=== PATIENT | male | born 1975 | race African-American/Black ===

== ENCOUNTER 2024-08-09 14:12 | Emergency (ER) | payer OTHER, SELFPAY ==
--- NOTE | ~2024-08-09 | XR_ITS ---
EXAMINATION: XR WRIST, RIGHT CLINICAL INFORMATION: s/p reduction of carpal dislocation COMPARISON: Hand radiograph August 09, 2024 TECHNIQUE: PA, lateral, and oblique views of the right wrist. FINDINGS: Scapholunate dissociation with a small avulsion fragment. Persistent volar dislocation of the lunate and dorsal dislocation of the triquetrum. Soft tissue structures are within normal limits. XR/XR wrist RT min 3V IMPRESSION: Persistent volar lunate dislocation. Electronically signed by: Alvaro Medina DO 08/09/2024 09:51 PM EST RP
--- NOTE | ~2024-08-09 | XR_ITS ---
EXAMINATION: XR HAND/WRIST, RIGHT CLINICAL INFORMATION: fall, pain COMPARISON: None available. TECHNIQUE: PA, lateral, and oblique views of the right hand and wrist. FINDINGS: There is a 7 mm widening at the triquetrum lunate joint. There is a volar position of the lunate and a dorsal position of the triquetrum. There is a dorsal position of the capitate with respect to the lunate. Metacarpals and phalanges are intact. Distal radius and ulna are intact. XR/XR hand wrist RT IMPRESSION: Carpal dislocation with a volar lunate dislocation Electronically signed by: Danny Diaz MD 08/09/2024 03:39 PM EST
--- NOTE | ~2024-08-09 | XR_ITS ---
EXAMINATION: XR SHOULDER, RIGHT CLINICAL INFORMATION: fall, pain COMPARISON: None available. TECHNIQUE: AP external rotation, Grashey, scapular Y, and axillary views of the right shoulder. FINDINGS: Subchondral cyst formation in the greater tuberosity. No acute cortical disruption or malalignment. No lytic or blastic lesions. XR/XR shoulder RT min 2V IMPRESSION: Degenerative changes without acute fracture or dislocation. Electronically signed by: Danny Diaz MD 08/09/2024 03:29 PM [facility]
--- NOTE | ~2024-08-09 | XR_ITS ---
EXAMINATION: XR ELBOW, RIGHT CLINICAL INFORMATION: fall, pain COMPARISON: None available. TECHNIQUE: AP, lateral, and oblique views of the right elbow. FINDINGS: The bones and soft tissues are normal. No fracture or joint effusion. Alignment is anatomic. Joint spaces are maintained. XR/XR elbow RT 2V IMPRESSION: No acute fracture or subluxation of the right elbow. Electronically signed by: Enrique Galo MD 08/09/2024 03:37 PM [facility]
--- NOTE | 2024-08-09 14:18 | ED_ITS ---
HPI - General Adult General Chief complaint: Fall Stated complaint: r arm inj at work Time Seen by Provider: 08/09/24 15:00 Source: patient Mode of arrival: ambulatory Limitations: no limitations History of Present Illness ED Provider: DR. Peralta HPI narrative: 49-year-old male came in for evaluation of right arm pain after fell off a 6 ft ladder while he was working on the roof. patient is right-handed dominant. The bottom of the ladder was unstable made the patient to fall Of the ladder to the right side patient tried to use the fall using his right hand, no head in jury, no LOC, mainly complaining of right wrist pain /right hand pain and right shoulder pain. No headache, no neck pain, no weakness, no numbness, no CP, no abdominal pain, no lower extremities pain. Patient is known to have high blood pressure follow- up with his security consultant took his blood pressure medication in the morning his blood pressure in the ED is 203/108 without symptoms. Related Data Allergies Allergy/AdvReac Type Severity Reaction Status Date / Time No Known Allergies Allergy Verified 08/09/24 14:22 Review of Systems Review of Systems: All other systems are reviewed and are negative Constitutional: Reports as per HPI and Reports no additional constitutional complaints Eyes: Reports as per HPI and Reports no additional eye complaints Reports system reviewed and no additional complaints, except as documented Cardiovascular: Reports as per HPI and Reports no additional cardiovascular complaints Respiratory: Reports as per HPI and Reports no additional respiratory complaints Gastrointestinal: Reports as per HPI and Reports no additional gastrointestinal complaints Genitourinary: Reports no additional female genitourinary complaints Musculoskeletal: Reports no additional musculoskeletal complaints Skin/Breast: Reports system reviewed and no additional complaints, except as docu Psychiatric: Reports no additional psychiatric complaints Endocrine: Reports no additional endocrine complaints Hematologic/Lymphatic: Reports no additional hematologic/lymphatic complaints Allergic/Immunologic: Reports no additional allergic/immunologic complaints Reports system reviewed and no additional complaints, except as documented and Reports Abnormal speech present PMFSH Social History Social History Advance Directives: No Advance Directives Information Provided: Yes Do you have a plan to hurt others: No Plan Physical Exam ED Vital Signs: Vital Signs - 24 hr 08/09/24 14:19 08/09/24 17:23 08/09/24 19:57 Temperature 98 F Pulse Rate 68 74 72 Respiratory Rate 18 16 16 Blood Pressure 203/108 H 186/108 H 202/122 H Pulse Oximetry 98 98 98 Oxygen Delivery Method Room Air Room Air 08/09/24 20:18 Temperature Pulse Rate 84 Respiratory Rate Blood Pressure 221/103 H Pulse Oximetry Oxygen Delivery Method BMI result Body Mass Index 26.6 Vital signs have been reviewed and appear to be correct. Blood pressure elevated. Heart rate normal. Respiratory rate normal. Temperature normal. Oxygen saturation normal. Appearance: Alert. Oriented X3. No acute distress. Head: Normal external exam. Normocephalic. Atraumatic. No Stein signs noted. No raccoon eyes noted Eyes: PERRLA. EOMI. Conjunctiva and sclera normal. Eyelids normal. ENT: TM's Normal. Pharynx normal. Uvula midline. Moist mucous membranes. No trismus noted. No drooling noted. No muffled voice noted. Neck: Normal inspection. Neck supple. FROM. No adenopathy. Thyroid Normal. No meningeal signs. No neck mass noted. CVS: Normal heart rate and rhythm. Heart sound normal. No murmurs noted. Pulses normal throughout. Respiratory: No respiratory distress. Painless inspiration. Breath sounds normal. No wheezes/rales/rhonchi noted. Chest nontender. No accessory muscle usage noted or decreased air movement noted. Abdomen: Soft and nontender. Bowel sounds normal in all 4 quadrants. No distention noted. No organomegaly noted. No visible injury noted. Back: No CVA tenderness. Full range of motion noted. Skin: Skin warm and dry. Normal skin color. Normal skin turgor. No rashes/lesions/lacerations noted. Extremities: No lower extremity edema. Extremities exhibit normal range of motion. Extremities nontender. Neuro: Oriented X 3. Cranial nerve exam: II-XII are grossly intact No motor deficit. No sensory deficit. Reflexes normal. Course Course Course Narrative: This is a rapid medical exam performed by Elroy Guadarrama NP: Additional HPI, ROS, PE not included below will be deferred to primary provider. Patient is a 49-year-old right hand dominant male presenting with complaint of right arm pain from shoulder all the way to hand after falling off a 6' ladder around 10 am. Denies head strike or LOC. Hx of HTN, took medication this am. 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 Denies neck or back pain. Plan: xrays Reevaluation(s) Reevaluation #1: carpal bone dislocation with lunate dislocation, after attempt of reduction in the emergency department by hanging left hand in a fingertrap with applying weight to the elbow and manipulation repeat x-ray of the wrist is showing no good reduction, the case was discussed with Dr. Mckenzie /Zoey the plan is pain control, apply splint to the left wrist, patient to keep NPO after midnight tonight, and ortho office will call the patient tomorrow morning to have him come back for open reduction in the OR all the above instruction was discussed with the patient and patient verbalized full understanding of the instructions. Patient with known hypertension follow with a security consultant for his high blood pressure was recently increased his blood pressure dosage patient in the emergency department have high blood pressure with a mix of left wrist pain, patient has no chest pain, no shortness of breath, no blurry vision, no headache. Patient was instructed to follow-up with his security consultant to continue managing his blood pressure. Patient was instructed to take his morning medication before midnight and stay NPO for possible surgery and open reduction tomorrow. Time: 20:47 Medications Administered Discontinued Medications Generic Name Dose Route Start Last Admin Trade Name Kam PRN Reason Stop Dose Admin Amlodipine Besylate 5 mg 08/09/24 15:11 08/09/24 15:21 Amlodipine Besylate 5 Mg Tablet PO 08/09/24 15:12 5 mg ONCE ONE Administration Protocol Ibuprofen 800 mg 08/09/24 15:11 08/09/24 15:21 Ibuprofen 800 Mg Tablet PO 08/09/24 15:12 800 mg ONCE ONE Administration Ibuprofen 600 mg 08/09/24 20:03 08/09/24 20:13 Ibuprofen 600 Mg Tablet PO 08/09/24 20:04 600 mg ONCE ONE Administration Oxycodone HCl 5 mg 08/09/24 15:11 08/09/24 15:21 Oxycodone Hcl Immed Release 5 Mg Tablet PO 08/09/24 15:12 5 mg ONCE ONE Administration Oxycodone HCl 5 mg 08/09/24 20:03 08/09/24 20:14 Oxycodone Hcl Immed Release 5 Mg Tablet PO 08/09/24 20:04 5 mg ONCE ONE Administration Procedures Orthopedic Joint Reduction Joint #1: Time Out Performed: Yes Side: left Joint Reduction Location: wrist Analgesia: none Shoulder Technique Used (if applicable): traction/counter-traction Technique used: traction/counter-traction and direct manipulation Medical Decision Making Differential Diagnosis Differential Diagnoses: The differential diagnosis associated with the presentation includes ( Left shoulder fracture, left arm fracture, left elbow fracture, left elbow dislocation, left forearm fracture, carpal dislocation, metacarpal fracture, finger injuries.) Admission/Observation Consideration of admission/observation: Escalation of care including admission/observation considered Independent Interpretation I performed an independent interpretation of an: Plain X-Ray (There is a 7 mm widening at the triquetrum lunate joint. There is a volar position of the lunate and a dorsal position of the triquetrum. There is a dorsal position of the capitate with respect to the lunate. Metacarpals and phalanges are intact. Distal radius and ulna are intact. ) Radiology Impression Discussion of test interpretation with radiology: I have reviewed the radiologist's reading. Discharge Plan Discharge Clinical Impression: Closed dislocation of carpometacarpal joint of left wrist Patient Disposition: Home, Self-Care Instructions: Wrist Injury (ED) Additional Instructions: apply ice to the painful area. Do not eat or drink anything after midnight tonight and await phone call from Dr. Mckenzie office for possible surgery tomorrow to reduce your left wrist. Take ibuprofen 200 mg tablet every 6 hours if needed for pain. Follow-up with your security consultant regard to your high reading of blood pressure. Referrals: Marybeth Mckenzie MD [Physician] - Stand Alone Forms: Work/School Release Print Language: Fijian
[2024-08-09 14:19] VITALS: BP 203/108; PULSE 68; RESP 18; TEMP 36.6; O2SAT 98; BMI 26.6
[2024-08-09] MEDS: oxyCODONE HCl Immed Release 5 MG TABLET PO ×2 (15:21→20:14)
[2024-08-09] MEDS: amLODIPine Besylate 5 MG TABLET PO (15:21)
[2024-08-09] MEDS: Ibuprofen 800 MG TABLET PO (15:21)
[2024-08-09 17:23] VITALS: BP 186/108; PULSE 74; RESP 16; O2SAT 98
[2024-08-09 19:57] VITALS: BP 202/122; PULSE 72; RESP 16; O2SAT 98
[2024-08-09] MEDS: Ibuprofen 600 MG TABLET PO (20:13)
[2024-08-09 20:18] VITALS: BP 221/103; PULSE 84
--- NOTE | 2024-08-09 20:19 | PC.NURSE ---
pt medicated per nov for 7/10 right wrist pain. aware of BP.
[2024-08-09 21:09] VITALS: BP 204/113; PULSE 75; RESP 16; TEMP 37.4; O2SAT 98
== END 2024-08-09 21:10 | disposition home or self-care (01) ==
PROVIDERS: Emergency Provider Emergency Medicine
DX: S62.121A Displaced fracture of lunate [semilunar], right wrist, initial encounter for closed fracture (principal); S62.111A Displaced fracture of triquetrum [cuneiform] bone, right wrist, initial encounter for closed fracture; W11.XXXA Fall on and from ladder, initial encounter; Y93.89 Activity, other specified; Y92.9 Unspecified place or not applicable; Y99.0 Civilian activity done for income or pay
CPT/HCPCS: 25635; 73030; 73070; 73110; 73130; 99283; 99284

== ENCOUNTER → 2024-08-09 14:23 | Outpatient (BNV) | payer OTHER, SELFPAY | PROVIDERS: Emergency Provider Emergency Medicine; Visit Provider Radiology Diagnostic Radiology | DX: M19.011 Primary osteoarthritis, right shoulder (principal) | CPT/HCPCS: 73030 ==

== ENCOUNTER 2024-08-10 12:00 | Day surgery (SDC) | payer OTHER, SELFPAY ==
[2024-08-10 12:33] VITALS: BMI 25.2
[2024-08-10 13:00] VITALS: BP 194/110; PULSE 67; RESP 15; TEMP 37.3; O2SAT 97
--- NOTE | 2024-08-10 13:11 | HO.ANESPROP2 ---
HPI - Anesthesia Eval Consult details Narrative: for ORIF right wrist PMFSH Past Medical History Medical History Elevated cholesterol HTN (hypertension) Myocardial infarction Family History Family history of problems with anesthesia: No Surgical History Surgical History H/O colonoscopy History of Problems with Anesthesia: No Social History Social History Patient Tobacco Use Status: Never used Tobacco Use of substances other than those prescribed or required for medical reasons: Yes Substance Use Type Other:: last smoked 2 days ago Substance Use Frequency: Occasionally Are you DNR?: No Advance Directives: No Advance Directives Information Provided: Yes Recently lost weight without trying: No Meds Allergies Allergy/AdvReac Type Severity Reaction Status Date / Time No Known Allergies Allergy Verified 08/10/24 12:30 Active Medications: Current Medications Dexamethasone Sodium Phosphate (Dexamethasone Sod Phosphate 4 Mg/Ml Vial) 4 mg IVPUSH PREOP ONE Stop: 08/10/24 13:11 Acetaminophen (Ofirmev) 1,000 mg in 100 mls @ 400 mls/hr IV PREOP ONE Stop: 08/10/24 13:23 Home Medications ?Medication ?Instructions ?Recorded ?Confirmed ?Last Taken ?Type aspirin 81 mg tablet 81 mg PO DAILY 08/10/24 08/10/24 Unknown History atorvastatin 80 mg tablet 80 mg PO DAILY 08/10/24 08/10/24 Unknown History carvedilol 12.5 mg tablet 12.5 mg PO BID 08/10/24 08/10/24 Unknown History valsartan 320 mg tablet 320 mg PO DAILY 08/10/24 08/10/24 Unknown History Exam Height,Weight and Vital Signs: Height 5 ft 8 in Weight 75.296 kg Airway Mallampati Class: II TM Dist: >3cm Neck ROM: Full Heart: rrr Lungs: cta Assessment and Plan Assessment Anesthesia Assessment: Anesthesia Plan Discussed Final Anesthetic Review Family History of Problems with Anesthesia: No History of Problems with Anesthesia: No NPO: Yes ASA Class: III Final Preanesthetic Review: No Changes in Pt Med Stat, Meds/Allgs Chart Reviewed, Consent Obtained/Reviewed and Anes Risks/Benef Reviewed Patient Risk: Intermediate Procedure Risk: Intermediate Anesthetic Plan Anesthetic Plan: GA and Regional Block Disposition: Standard PACU
[2024-08-10] MEDS: fentaNYL citrate/PF 100 MCG/2 ML VIAL 50 MCG IVPUSH ×2 (13:19→13:40)
[2024-08-10] MEDS: dexAMETHasone sod phosphate 4 MG/ML VIAL IVPUSH (13:23)
[2024-08-10] MEDS: Acetaminophen 1,000 MG/100 ML PIGGYBACK 400 MG IV (13:29)
--- NOTE | 2024-08-10 13:49 | PC.NURSE ---
fentanyl 50 mcg given at 1319 with a bp of 204/121. 5 minute check was 190/120, 10 minute check was 187/128. fentanyl 50mcg given at 1340 and 5 minute bp check down to 154/98. pain down from 9 to 6 after 1st dose and down to 3-4 after 2nd dose of fentanyl.
--- NOTE | 2024-08-10 13:52 | PC.NURSE ---
pt started with high bps and states has been dealing with high bps at home even with meds. anes made aware and transmission system operator info from [facility] obtained and reviewed by [facility].
--- NOTE | 2024-08-10 15:52 | MHC.SHP ---
Pre-Procedural Eval Section A - 24 Hr Update-Section A only Date of Service: 08/10/24 The patient is an INPATIENT: No Changes since office visit: Yes Cold of Flu in the past 2 weeks, Yes New Medical Problems, Yes Changes in Medication and Yes Patient answered all questions The patient has been examined within 24 hours of the surgical procedure. The History & Physical has been completed within 30 days and I have reviewed it.: Yes Section B - Complete if H&P > 30 days Chief Complaint: Dislocation of other carpometacarpal joint Allergies: Allergies Allergy/AdvReac Type Severity Reaction Status Date / Time egg AdvReac Nausea and Verified 08/10/24 13:16 Vomiting Exam Exam Comment: S: The patient is a 49-year-old [id number] man who fell from a ladder yesterday sustaining an injury to his right wrist. He complains of significant pain and swelling in his right wrist. He also reports that he was having trouble with numbness and tingling at night before he even fell. He then had numbness in his fingertips which is coming and going since his injury. O: The patient was alert oriented and in no acute distress after he got a little pain medication His right wrist is swollen and very painful. He can weakly flex and extend his fingers. Sensation is not quite normal in the median nerve distribution, more normal in the ulnar nerve distribution Cap refill brisk. No lacerations or evidence of open injury. Radiographs: Three views of the right wrist were taken pre and post reduction attempt. They show a perilunate midcarpal dislocation. There was no improvement or reduction of the midcarpal joint following the attempted reduction. Plan I have reviewed the history and physical and performed a pertinent physical examination on my patient. No changes have occurred unless specified. Assessment and plan: 1. Right perilunate midcarpal dislocation Date of injury 08/09/2024 2. Right carpal tunnel syndrome I educated the patient about this condition I am recommending operative treatment and the patient agrees. The risks and benefits of operative treatment were discussed with the patient and the patient wishes to proceed with surgery. These risks include, but are not limited to risk of damage to blood vessels, nerves, tendons, infection, recurrence, incomplete relief of preoperative symptoms, persistent pain, possible need for further surgery and the risks associated with regional blocks and anesthesia. The plan is to take the patient to the operating room today for the following procedures: 1. Right wrist dislocation open reduction internal fixation and repair of ligaments as indicated 2. Right carpal tunnel release All of the preoperative paperwork including the consent was filled out today. All the patient's questions were answered. Time Spent With Patient Time: Total time managing care of this patient today ____ minutes.
--- NOTE | 2024-08-10 16:00 | P.OP_ITS ---
Operative Note Operative Note Date of Service: 08/10/24 Narrative: Operative Note Narrative: Preop diagnosis: 1. Right wrist perilunate midcarpal dislocation 2. Right carpal tunnel release Postop diagnosis: Same Procedure: 1. Right wrist open reduction internal fixation 2. Right carpal tunnel release 3. Right scapholunate ligament repair 4. Right lunotriquetral ligament repair 5. Right EPL tendon transposition, and osteotomy of Brandt's tubercle 6. Neurectomy of the posterior interosseous nerve at the radiocarpal joint Surgeon: Marybeth Mckenzie MD Electrical Maintenance Man: Epifanio HUSSEIN Anesthesia: General Anesthesia plus regional block Findings: 1. Right dorsal perilunate midcarpal dislocation, with the associated scapholunate and lunotriquetral ligament tears 2. Tear of dorsal radiocarpal ligament 3. Displacement of the EPL tendon from its normal position passing around Brandt's tubercle. 4. Loss of cartilage from the head of the capitate, approximately 8-10 millimeter sq area Implants: 0.045 K-wires x3, with Nephew 2.0 mini tack suture anchor Tourniquet time: 114 minutes EBL: 5.0 ml Specimen: None Drains: None Complications: None Disposition: Brought to the recovery room in stable condition Plan: Follow-up in 10-14 days for wound check, suture removal and placement in a short-arm cast. Be careful not to allow flexion or extension at the wrist joint as there is a K- wire passing across the radiocarpal joint. Anticipate K-wire removal at not sooner than 6 weeks postop Anticipate placement in a short-arm cast until at least 8 weeks postop Indications: The patient is a 49 year old man with a right wrist perilunate midcarpal dislocation and carpal tunnel syndrome following a fall from a ladder. . The risks and benefits of operative treatment, including but not limited to risk of damage to blood vessels, nerves, tendons, infection, recurrence, persistent pain or numbness, incomplete resolution of preoperative symptoms, or need for further surgery were discussed with the patient and they wished to proceed with surgery. Procedure: Once consent was obtained patient was brought back to the operating suite and placed in the operating table in a supine position. A regional block was performed by the anesthesia team. Perioperative antibiotics and anesthesia was administered by the anesthesia team. A tourniquet was applied to the proximal aspect of the right upper extremity and the limb was prepped and draped in a standard surgical fashion. The limb was elevated exsanguinated with Esmarch bandage and the tourniquet inflated to 250 mm of mercury for a total tourniquet time of [ ] minutes. A 2.0 cm longitudinal incision was made centered over the right carpal tunnel. The incision was made through the skin to the subcutaneous tissues using a #15 blade. Dissection was made down to the level of the transverse carpal ligament with care being taken to protect the palmar cutaneous nerve. Once the transverse carpal ligament was clearly visualized, a longitudinal incision was made in the transverse carpal ligament 1st using a #15 blade, then using tenotomy scissors under direct visualization. Care was taken to look for and protect the motor branch of the median nerve when seen in this area. Once satisfied with our carpal tunnel release the wound was irrigated with normal saline and the skin edges were reapproximated with some 5 0 Prolene suture material. Attention was then turned to our perilunate midcarpal wrist dislocation. I made a 8 cm incision over the dorsal central aspect of the patient's right wrist. The incision was made through the skin to the subcutaneous tissues using a 15. Blade. I dissected down to the level of the extensor tendons using tenotomy scissors. I made a dorsal longitudinal incision through the extensor retinaculum over the 4th dorsal compartment. The 4th dorsal compartment tendons were then retracted ulnarly. The EPL tendon was noted to be avulsed from its usual position around Brandt's tubercle. The EPL tendon was transposed and an osteotomy was performed of Brandt's tubercle using a large rongeur. This was then smoothed so as not to irritate the EPL tendon. I then made a dorsal longitudinal incision in line with the 3rd metacarpal over the dorsal capsular ligamentous structures of the wrist. The midcarpal joint was dorsally dislocated. I passed a Paoli elevator through the space between the scaphoid and the triquetrum tilting the volarly displaced lunate dorsally and then reduced the capitate into its normal position over the distal articular surface of the lunate. Please note that there was some significant cartilage loss on the head of the capitate measuring roughly 8-10 millimeters sq. The wound was copiously irrigated with normal saline. I then placed 0.045 joysticks in the dorsal aspect of the lunate and the dorsal aspect of the scaphoid. Using these joysticks I brought the lunate out of hyper extension and I brought the scaphoid out of hyperflexion. I then passed a 0.045 K-wire transversely through the proximal pole of the scaphoid across the scapholunate interval and into the body of the lunate. Once satisfied with this K-wire I then reduced the lunotriquetral joint and passed a 0.045 K-wire from the triquetrum across the lunotriquetral joint and into the body of the lunate. I then brought the wrist into some slight extension and passed a 0.045 K-wire from the radial styloid across the scaphoid and into the capitate. I was satisfied with our open reduction of the wrist joint and placement of all K- wires. At this point the pins were bent cut short had pin caps applied. The scapholunate ligament was noted to be avulsed off of the dorsal aspect of the lunate. I thus placed a Morris Nephew 2.0 mm mini tack into the dorsal aspect of the lunate. This was done by 1st drilling the dispatcher ship pilot hole, and then placing the suture anchor. The suture anchor was stable. I then repaired the scapholunate ligament and then the lunotriquetral ligament from that suture anchor. Once satisfied with the placement of all implants final radiographs were obtained. I then used some 3-0 Ethibond to repair the dorsal capsular ligamentous structures including the dorsal radiocarpal ligament. The EPL tendon again had been transposed, and I applied some traction to it and saw that the tendon was free to extend the thumb. The extensor tendons of the 4th dorsal compartment were then placed back within the retinaculum. I then repaired the extensor retinaculum using some 3-0 Ethibond and 3-0 Vicryl suture. The wound was again copiously irrigated with normal saline. At this point the tourniquet was deflated and hemostasis obtained with a brief period of local pressure and bipolar electrocautery. The wound was copiously irrigated with normal saline. The subcutaneous layer was closed with 4-0 Vicryl suture, and the skin edges were reapproximated with 4-0 nylon suture. The wound was infiltrated with some 1% lidocaine with epinephrine for postop pain control and a sterile dressing and volar splint was applied. The patient appears to have tolerated the procedure well and with no complications. All digits were well vascularized conclusion of the case.
[2024-08-10 20:04] VITALS: BP 170/90; PULSE 85; RESP 15; TEMP 36.5; O2SAT 99
[2024-08-10 20:09] VITALS: BP 188/99; PULSE 96; RESP 18; O2SAT 96
[2024-08-10 20:14] VITALS: BP 180/99; PULSE 83; RESP 18; O2SAT 98
[2024-08-10 20:19] VITALS: BP 155/94; PULSE 88; RESP 16; O2SAT 98
[2024-08-10 20:34] VITALS: BP 152/98; PULSE 90; RESP 20; TEMP 37.2; O2SAT 100
== END 2024-08-10 20:55 | disposition home or self-care (01) ==
PROVIDERS: Visit Provider Orthopaedic Surgery
PROC: (CPT 25676; principal; 2024-08-10 13:30)
DX: S63.03 Subluxation and dislocation of midcarpal joint (principal); G56.01 Carpal tunnel syndrome, right upper limb; R20.0 Anesthesia of skin; R20.2 Paresthesia of skin; W11.XXXA Fall on and from ladder, initial encounter; Y93.9 Activity, unspecified; Y92.9 Unspecified place or not applicable; Y99.9 Unspecified external cause status; I10 Essential (primary) hypertension; E78.00 Pure hypercholesterolemia, unspecified; I25.2 Old myocardial infarction; Z79.82 Long term (current) use of aspirin; Z79.899 Other long term (current) drug therapy; Z91.012 Allergy to eggs
CPT/HCPCS: 25676; 25320; 64721; 26480; 64772; C1713; J0131; J0665; J0690; J1100; J2003; J2004; J2250; J2405; J2704; J2795; J3010

== ENCOUNTER → 2024-08-10 12:00 | Outpatient (BNV) | payer OTHER, SELFPAY | PROVIDERS: Visit Provider Orthopaedic Surgery | DX: S63.054A Dislocation of other carpometacarpal joint of right hand, initial encounter (principal); G56.01 Carpal tunnel syndrome, right upper limb | CPT/HCPCS: 25670; 26480; 64721 ==

== ENCOUNTER 2024-08-23 08:28 | Outpatient (AMB) | payer OTHER, SELFPAY ==
--- NOTE | 2024-08-23 08:38 | A.OFFVIS_ITS ---
Vital Signs 08/23/24 08:39 Height 5 ft 8 in Weight 170 lb BMI 25.8 Intake Visit Reasons: PO-RT wrist dislocation ORIF 08/10/24 AR Intake Note: Vlad is a 49 year old right hand dominant male who presents today with his Patti for his post-operatively s/p left wrist ORIF performed 08/10/[address] Mckenzie. Dressing remove and xrayts updated in office. States he has no pain in hand, just sore in his shoulder due to splintting. Allergies egg Adverse Reaction (Verified 08/23/24 08:42) Nausea and Vomiting HPI HPI PO-RT wrist dislocation ORIF 08/10/24 AR: Details: Vlad is a 49 year old right hand dominant man who presents S/P right wrist ORIF, carpal tunnel release, scapholunate ligament repair, lunotriquetral ligament repair, EPL tendon transposition & osteotomy of Brandt's tubercle, neuroectomy of posterior interosseous nerve at the radiocarpal joint, DOS: 08/10/24. 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 He was seen in the ED on 08/09/24 where a reduction was attempted. He says he is doing well and denies any pain in his wrist. He does complain of pain in his shoulder which he attributes to splinting. He says his sensation is now normal to all digits of his right hand. He is seen today with his . 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 Sutures removed and Steri-Strips applied He still has a fair amount of swelling in his wrist and hand. Again no erythema or drainage He says that he has no pain Pin sites are also clean and dry with no erythema drainage or evidence of infection He can make a weak fist and extend all his digits Normal sensation to all digits. Cap refill is brisk Radiographs: 3 views of the right wrist were taken and viewed by me today in clinic. They show that the perilunate midcarpal dislocation has been reduced with 3 K-[address] place. One crosses the scapholunate interval, 1 crosses the lunotriquetral interval and 1 crosses from the distal radius across the scaphoid and into the capitate. These are 0.045 K-wires. Satisfactory reduction and position of all K-wires. There is a suture anchor positioned in the lunate with satisfactory position. Psych Appearance: grossly normal Affect: normal affect Attitude: cooperative Assessment & Plan Assessment & Plan (1) Dislocation of right wrist: Code(s): S63.004A - Unspecified dislocation of right wrist and hand, initial encounter Category: Medical (2) Carpal tunnel syndrome of right wrist: Code(s): G56.01 - Carpal tunnel syndrome, right upper limb Category: Medical Plan Assessment & Plan: 1. Right wrist perilunate midcarpal dislocation, S/P A. Wrist dislocation ORIF B. scapholunate ligament repair C. lunotriquetral ligament repair D. EPL tendon transposition & osteotomy of Brandt's tubercle E. neuroectomy of posterior interosseous nerve at the radiocarpal joint From a fall off a roof, DOI: 08/09/24 DOS: 08/10/24 This is a work related injury 2. Injury related Right carpal tunnel syndrome, S/P release DOS: 08/10/2024 Pre-operatively with numbness Now with normal sensation The patient appears to be doing well post-operatively I educated him and his about the post-operative course, and reviewed his radiographs with him I explained the signs and symptoms of infection, if the patient develops any new or worsening erythema, drainage, pain, or warmth they should contact the clinic or attend the ED. He was fitted for a short arm cast to be worn for the next 2 weeks I discussed activity modifications, he is to lift nothing heavier than a cellphone for the next 8-12 weeks I explained the recovery timeline and that I anticipate he will be in a cast for at least 8 weeks post-operatively, he expressed understanding He will perform gentle finger ROM exercises at home He will follow up in 2 weeks for a wound check, with X-rays 3V R wrist, OOP He will be placed back into a short-arm Anticipate K-wire removal in 6 weeks Again anticipate casting until 8 weeks. He is a smoker of marijuana, I counseled him about the importance of smoking cessation. We also gave him a note keeping him out of work for 5 weeks. Again this is a work-related injury. Scribed for Marybeth Mckenzie MD by Lui Mendez, medical office receptionist assistant, on 08/23/24 at 9:40 AM, EST. Orders: Orders XR wrist RT min 3V Today M25.531 - Pain in right wrist Medications: Discontinued oxycodone-acetaminophen 5-325 mg Partial Fill upon patient request. Discontinued Reason: Patient Completed Course 1 tab PO Q6H PRN 30 tabs 0RF pain, severe Coding Level of Care Code Global (10214) Diagnoses Dislocation of right wrist S63.004A Carpal tunnel syndrome of right wrist G56.01
[2024-08-23 08:39] VITALS: BMI 25.8
== END 2024-08-23 09:49 | disposition home or self-care (01) ==
PROVIDERS: Visit Provider Orthopaedic Surgery
DX: S63.004A Unspecified dislocation of right wrist and hand, initial encounter (principal); G56.01 Carpal tunnel syndrome, right upper limb
CPT/HCPCS: 99024

== ENCOUNTER 2024-08-23 08:59 | Outpatient (REF) | payer OTHER, SELFPAY | END 2024-08-23 09:00 | disposition home or self-care (01) | LOC: HO.HOSX 08:59 | PROVIDERS: Visit Provider Orthopaedic Surgery | DX: M25.531 Pain in right wrist (principal) | CPT/HCPCS: 73110 ==

== ENCOUNTER 2024-09-06 12:03 | Outpatient (REF) | payer OTHER, SELFPAY | END 2024-09-06 12:04 | disposition home or self-care (01) | LOC: HO.HOSX 12:03 | PROVIDERS: Visit Provider Orthopaedic Surgery | DX: M25.531 Pain in right wrist (principal); S63.004A Unspecified dislocation of right wrist and hand, initial encounter; G56.01 Carpal tunnel syndrome, right upper limb; S49.91XA Unspecified injury of right shoulder and upper arm, initial encounter | CPT/HCPCS: 73110; 99212 ==

== ENCOUNTER 2024-09-06 12:10 | Outpatient (AMB) | payer OTHER, SELFPAY ==
--- NOTE | 2024-09-06 12:25 | A.OFFVIS_ITS ---
Vital Signs 09/06/24 13:05 Height 5 ft 8 in Weight 170 lb BMI 25.8 Intake Visit Reasons: RT wrist dislocation ORIF 08/10/24 AR-w/xrays Intake Note: Vlad is a 49 year old right hand dominant male who presents today with his Patti for his post-operatively s/p left wrist ORIF performed 08/10/[address] Mckenzie. Cast off, dressing remove and xrayts updated in office. States he is doing well just has some soreness in thumb. Allergies egg Adverse Reaction (Verified 09/06/24 13:07) Nausea and Vomiting HPI HPI RT wrist dislocation ORIF 08/10/24 AR-w/xrays: Details: Vlad is a 49 year old right hand dominant man who presents S/P right wrist ORIF, carpal tunnel release, scapholunate ligament repair, lunotriquetral ligament repair, EPL tendon transposition & osteotomy of Brandt's tubercle, neuroectomy of posterior interosseous nerve at the radiocarpal joint, DOS: 08/10/24. 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 He was seen in the ED on 08/09/24 where a reduction was attempted. He says he is doing well and denies any pain in his wrist. He reports having some pain in his thumb. He says his sensation is now normal to all digits of his right hand. He is seen today with his . He also says that he cannot raise his arm above shoulder level since his injury, and he has pain with motion. 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 He still has some swelling in his wrist and hand, improving from prior He says that he has no pain He can make a weak fist and extend all his digits When trying to move his thumb he has some pain at the most distal K-wire which is likely near when of the extensor tendons to the thumb Stiffness in wrist supination Normal sensation to all digits. Cap refill is brisk Radiographs: 3 views of the right wrist were taken and viewed by me today in clinic. They show that the perilunate midcarpal dislocation has been reduced with [address] K-[address] place. One crosses the scapholunate interval, 1 crosses the lunotriquetral interval and 1 crosses from the distal radius across the scaphoid and into the capitate. These are 0.045 K-wires. Satisfactory reduction and position of all K-wires. There is a suture anchor positioned in the lunate with satisfactory position. Psych Appearance: grossly normal Affect: normal affect Attitude: cooperative Assessment & Plan Assessment & Plan (1) Dislocation of right wrist: Code(s): S63.004A - Unspecified dislocation of right wrist and hand, initial encounter Category: Medical (2) Carpal tunnel syndrome of right wrist: Code(s): G56.01 - Carpal tunnel syndrome, right upper limb Category: Medical (3) Right shoulder injury: Code(s): S49.91XA - Unspecified injury of right shoulder and upper arm, initial encounter Category: Medical Plan Assessment & Plan: 1. Right wrist perilunate midcarpal dislocation, S/P A. Wrist dislocation ORIF B. scapholunate ligament repair C. lunotriquetral ligament repair D. EPL tendon transposition & osteotomy of Brandt's tubercle E. neuroectomy of posterior interosseous nerve at the radiocarpal joint From a fall off a roof, DOI: 08/09/24 DOS: 08/10/24 This is a work related injury 2. Injury related Right carpal tunnel syndrome, S/P release DOS: 08/10/2024 Pre-operatively with numbness Now with normal sensation The patient appears to be doing well post-operatively I educated him and his about the post-operative course I explained the signs and symptoms of infection, if the patient develops any new or worsening erythema, drainage, pain, or warmth they should contact the clinic or attend the ED. He was fitted for a short arm cast to be worn for the next 2 weeks I explained that he should continue to keep his wrist elevated at or above heart level when possible I discussed activity modifications, he is to lift nothing heavier than a cellphone for the next 6-10 weeks I explained the recovery timeline and that I anticipate he will be in a cast for at least 8 weeks post-operatively, he expressed understanding He will perform gentle finger ROM exercises at home and will now begin to work on wrist supination execises He is a smoker of marijuana,I explained the effects of smoking on wound/bone healing, and recommend they stop smoking while healing. They expressed understanding He will follow up in 2 weeks for a wound check, with X-rays 3V R wrist, OOP. Anticipate K-wire removal at that time. Also consider a referral to OT hand therapy for gentle ROM at his next appointment. Again anticipate casting until 8 weeks post-op 3. Right shoulder injury Limited ROM of right arm to shoulder level since his injury He will make an appointment with a PA for evaluation. Scribed for Marybeth Mckenzie MD by Lui Mendez, medical assistant instructor, on 09/06/24 at 1:10 PM, EST. Orders: Orders XR wrist RT min 3V Today M25.531 - Pain in right wrist Coding Level of Care Code Global (28103) Diagnoses Dislocation of right wrist S63.004A Carpal tunnel syndrome of right wrist G56.01 Right shoulder injury S49.91XA
[2024-09-06 13:05] VITALS: BMI 25.8
== END 2024-09-06 13:53 | disposition home or self-care (01) ==
PROVIDERS: Visit Provider Orthopaedic Surgery
DX: S63.004A Unspecified dislocation of right wrist and hand, initial encounter (principal); G56.01 Carpal tunnel syndrome, right upper limb; S49.91XA Unspecified injury of right shoulder and upper arm, initial encounter
CPT/HCPCS: 99024

== ENCOUNTER 2024-09-19 11:32 | Outpatient (AMB) | payer OTHER, SELFPAY ==
--- NOTE | 2024-09-19 12:25 | MHC.OFFVIS ---
Intake Visit Reasons: PO-RT wrist dislocation ORIF 08/10/24 AR-w/xrays Intake Note: Vlad 49 yr old right male presents today for his P/O visit for his right wrist dislocation ORIF & CTR DOS: 08/10/24 . Cast removed and x rays updated in office. States he is ready to have his pins removed. Patient is feeling a bit better, he is having little to no pain. Allergies egg Adverse Reaction (Verified 09/19/24 12:27) Nausea and Vomiting HPI HPI PO-RT wrist dislocation ORIF 08/10/24 AR-w/xrays: Details: Vlad is a 49 year old right hand dominant man who presents S/P right wrist ORIF, carpal tunnel release, scapholunate ligament repair, lunotriquetral ligament repair, EPL tendon transposition & osteotomy of Brandt's tubercle, neuroectomy of posterior interosseous nerve at the radiocarpal joint, DOS: 08/10/24. 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 He was seen in the ED on 08/09/24 where a reduction was attempted. He says he is doing well and denies any pain in his wrist. 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 His incisions are well healed, it is pin sites are clean dry and intact with no erythema drainage or evidence of infection. He can make a fist and extend all of his digits. He has full pronation and can supinate to about 60 degrees. His K-wires removed today x3 and he tolerated that well. Radiographs: Three views of his right wrist were taken again today and reviewed by me in clinic. They show satisfactory carpal alignment, and position of all 3 K-wires and the suture anchor. Assessment & Plan Assessment & Plan (1) Carpal tunnel syndrome of right wrist: Code(s): G56.01 - Carpal tunnel syndrome, right upper limb Category: Medical (2) Dislocation of right wrist: Code(s): S63.004A - Unspecified dislocation of right wrist and hand, initial encounter Category: Medical Plan Assessment & Plan: 1. Right wrist perilunate midcarpal dislocation, S/P A. Wrist dislocation ORIF B. scapholunate ligament repair C. lunotriquetral ligament repair D. EPL tendon transposition & osteotomy of Brandt's tubercle E. neuroectomy of posterior interosseous nerve at the radiocarpal joint From a fall off a roof, DOI: 08/09/24 DOS: 08/10/24 This is a work related injury 2. Injury related Right carpal tunnel syndrome, S/P release DOS: 08/10/2024 Pre-operatively with numbness Now with normal sensation The patient appears to be doing well post-operatively I educated him and his about the post-operative course His K-wires were removed today in clinic and he tolerated that well. We put him back in a short-arm cast for 2 more weeks. He is a smoker of marijuana,I explained the effects of smoking on wound/bone healing, and recommend they stop smoking while healing. They expressed understanding He will follow up in 2 weeks for a wound check, with X-rays 3V R wrist, OOP. At that time we will likely discontinue the cast. Consider a referral to OT hand therapy at that time for gentle wrist range of motion. The next focus will be working on range of motion. We will slowly advance his weight-bearing at his 12 week appointment. 3. Right shoulder injury Limited ROM of right arm to shoulder level since his injury He will make an appointment with a PA for evaluation. Orders: Orders XR wrist RT min 3V Today M25.531 - Pain in right wrist Coding Level of Care Code Global (92174) Diagnoses Carpal tunnel syndrome of right wrist G56.01 Dislocation of right wrist S63.004A
== END 2024-09-19 13:44 | disposition home or self-care (01) ==
PROVIDERS: Visit Provider Orthopaedic Surgery
DX: G56.01 Carpal tunnel syndrome, right upper limb (principal); S63.004A Unspecified dislocation of right wrist and hand, initial encounter
CPT/HCPCS: 99024

== ENCOUNTER → 2024-09-19 11:33 | Outpatient (BNV) | payer OTHER, SELFPAY | PROVIDERS: Visit Provider Radiology Diagnostic Radiology | DX: S62.111A Displaced fracture of triquetrum [cuneiform] bone, right wrist, initial encounter for closed fracture (principal); S62.121A Displaced fracture of lunate [semilunar], right wrist, initial encounter for closed fracture | CPT/HCPCS: 73110 ==

== ENCOUNTER 2024-09-19 13:03 | Outpatient (REF) | payer OTHER, SELFPAY ==
--- NOTE | ~2024-09-19 | XR_ITS ---
EXAMINATION: XR WRIST 3 OR MORE VIEWS RIGHT HISTORY: M25.531 - Pain in right wrist COMPARISON: Comparison is made with the prior examination dated 09/06/2024. FINDINGS: Four views of the right wrist are submitted. Osseous mineralization is normal. The patient is again noted to be status post internal fixation with K wires across the scapholunate and lunotriquetral spaces as well as extending from the radial styloid through the scaphoid and into the capitate. Alignment is anatomic. An osseous density at the dorsum of the wrist may represent a triquetral fracture. There is diffuse mild soft tissue swelling. XR/XR wrist RT min 3V IMPRESSION: Postsurgical changes involving the right wrist as described. Possible triquetral fracture. Electronically signed by: Calritos Eldridge MD 09/27/2024 07:18 AM TESSY LOCK
== END 2024-09-19 13:04 | disposition home or self-care (01) ==
LOC: HO.HOSX 13:03
PROVIDERS: Visit Provider Orthopaedic Surgery
DX: M25.531 Pain in right wrist (principal); G56.01 Carpal tunnel syndrome, right upper limb; S63.004D Unspecified dislocation of right wrist and hand, subsequent encounter; Z98.890 Other specified postprocedural states
CPT/HCPCS: 73110; 99212

== ENCOUNTER 2024-09-28 11:07 | Outpatient (AMB) | payer OTHER, SELFPAY ==
--- NOTE | 2024-09-28 11:08 | MHC.OFFVIS ---
Intake Visit Reasons: Newprob-Right shoulder pain, WC 08/09/24, Right shoulder weakness Intake Note: Vlad is a 49 year old right hand dominant male who presents with complaints of progressively worsening right shoulder pain and weakness. The patient states that he injured his right shoulder when he fell onto his right arm on 08/09/2024 while working on a ladder. The patient states that since that time he has not had the ability to lift his right hand to shoulder height actively. Denies any numbness or tingling in either of his upper extremities. He has done physical therapy exercises which have not helped his strength at all. He has tried Tylenol and ibuprofen which gave him minimal relief. The patient also suffered a right wrist dislocation and underwent surgery. The K-wires were removed from his right wrist on 09/19/2024. He remains in a right short-arm cast. 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/ [employer] Physical Exam Const Other: Well-nourished well-developed very friendly male awake alert and oriented x3 in no acute distress Extrem Other: Bilateral upper extremity examination shows good capillary refill, no skin lesions noted, normal sensation light touch Right shoulder examination shows full passive range of motion but decreased active range of motion when compared to his left shoulder, 3/5 strength with supraspinatus testing, positive impingement signs, no instability Results Reviewed Results Reviewed: X-ray report of the patient's right shoulder shows no acute bony abnormalities Assessment & Plan Assessment & Plan (1) Rotator cuff insufficiency of right shoulder: Code(s): M25.311 - Other instability, right shoulder Category: Medical Plan Mr. Theodore presents with progressively worsening right shoulder pain and weakness most likely due to a full-thickness rotator cuff tear. I will send the patient for an MRI of his right shoulder for further evaluation. I will see him back once the MRI is completed to discuss the findings and treatment options. He will continue with his range of motion exercises in the meantime to prevent stiffness. I spent 20 minutes in reviewing the patient's records and imaging studies, seeing the patient and documenting in the medical record. Orders: Orders MR shoulder RT wo con Today M25.311 - Other instability, right shoulder Coding Level of Care Code New Pt Level 3 (09736) Complex EM visit Add On G2211 Diagnoses Rotator cuff insufficiency of right shoulder M25.311
== END 2024-09-28 11:23 | disposition home or self-care (01) ==
PROVIDERS: Visit Provider Orthopaedic Surgery
DX: M25.311 Other instability, right shoulder (principal)
CPT/HCPCS: 99213; G2211

== ENCOUNTER → 2024-09-28 11:07 | Outpatient (BNVA) | payer OTHER, SELFPAY | PROVIDERS: Visit Provider Orthopaedic Surgery | DX: M25.311 Other instability, right shoulder (principal) | CPT/HCPCS: 99212 ==

== ENCOUNTER 2024-10-04 10:27 | Outpatient (REF) | payer OTHER, SELFPAY ==
--- NOTE | ~2024-10-04 | XR_ITS ---
CLINICAL HISTORY: M25.531 - Pain in right wrist 3 view right wrist Comparison: None Findings: Bones intact. No dislocations. There are surgical material in the lunate. No significant loss of joint space, osteophyte, or erosions. No other radiopaque foreign body. IMPRESSION: 1. No acute findings This document has been electronically signed by: Enrique Caor MD on 10/06/2024 08:02:21
== END 2024-10-04 10:28 | disposition home or self-care (01) ==
LOC: HO.HOSX 10:27
PROVIDERS: Visit Provider Orthopaedic Surgery
DX: M25.531 Pain in right wrist (principal); S63.004D Unspecified dislocation of right wrist and hand, subsequent encounter; G56.01 Carpal tunnel syndrome, right upper limb; Z98.890 Other specified postprocedural states
CPT/HCPCS: 73110; 99212

== ENCOUNTER 2024-10-04 15:02 | Outpatient (AMB) | payer OTHER, SELFPAY ==
--- NOTE | 2024-10-04 15:19 | MHC.OFFVIS ---
Vital Signs 10/04/24 15:20 Height 5 ft 8 in Weight 170 lb BMI 25.8 Intake Visit Reasons: PO-RT wrist dislocation ORIF 08/10/24 AR-w/xrays Intake Note: Vlad 49 yr old right male presents today for his right wrist s/p wrist dislocation ORIF & CTR DOS: 08/10/24. Cast removed and xrays updated. States he has no pain and is doing well. Allergies egg Adverse Reaction (Verified 10/04/24 15:31) Nausea and Vomiting HPI HPI PO-RT wrist dislocation ORIF 08/10/24 AR-w/xrays: Details: Vlad is a 49 year old right hand dominant man who presents S/P right wrist ORIF, carpal tunnel release, scapholunate ligament repair, lunotriquetral ligament repair, EPL tendon transposition & osteotomy of Brandt's tubercle, neuroectomy of posterior interosseous nerve at the radiocarpal joint, DOS: 08/10/24. 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 He was seen in the ED on 08/09/24 where a reduction was attempted. He says he is doing well and denies any pain in his wrist. 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 His incisions are well healed, with no erythema drainage or evidence of infection. He can make a fist and extend all of his digits. He has full pronation and can supinate to ~70 degrees Radiographs: Three views of his right wrist were taken again today and reviewed by me in clinic. They show satisfactory carpal alignment, and position the suture anchor. K-wires were removed last visit. Psych Appearance: grossly normal Affect: normal affect Attitude: cooperative Assessment & Plan Assessment & Plan (1) Dislocation of right wrist: Code(s): S63.004A - Unspecified dislocation of right wrist and hand, initial encounter Category: Medical (2) Carpal tunnel syndrome of right wrist: Code(s): G56.01 - Carpal tunnel syndrome, right upper limb Category: Medical Plan Assessment & Plan: 1. Right wrist perilunate midcarpal dislocation, S/P A. Wrist dislocation ORIF B. scapholunate ligament repair C. lunotriquetral ligament repair D. EPL tendon transposition & osteotomy of Brandt's tubercle E. neuroectomy of posterior interosseous nerve at the radiocarpal joint From a fall off a roof, DOI: 08/09/24 DOS: 08/10/24 K-wires removed 09/19/24 This is a work related injury 2. Injury related Right carpal tunnel syndrome, S/P release DOS: 08/10/2024 Pre-operatively with numbness Now with normal sensation The patient appears to be doing well post-operatively I educated him and his about the post-operative course He was fitted for a velcro wrist splint, to be worn with daily activities. He should remove this when at home at rest. I ordered OT hand therapy to work on gentle wrist ROM. He should limit or avoid any weight bearing or strengthening for at least another 4 weeks He still has a 2lb weight limit until his next appointment. He was given a note for work to return on light duty, with a 2lb weight limit, for the next 4 weeks He will follow up in 4 weeks for a wound check, with X-rays 3V R wrist, OOP. Anticipate adding strengthening and normalizing function to his OT orders in the plans of returning to work 3. Right shoulder injury Limited ROM of right arm to shoulder level since his injury He has been seen by Dr. Grace for this Scribed for Marybeth Mckenzie MD by Lui Mendez, medical information specialist, on 10/04/24 at 3:30 PM, EST. Orders: Orders OT Evaluation and Treatment 10/04/24 G56.01 - Carpal tunnel syndrome, right upper limb, S63.004A - Unspecified dislocation of right wrist and hand, initial encounter XR wrist RT min 3V 10/04/24 M25.531 - Pain in right wrist Coding Level of Care Code Global (41392) Diagnoses Dislocation of right wrist S63.004A Carpal tunnel syndrome of right wrist G56.01
[2024-10-04 15:20] VITALS: BMI 25.8
== END 2024-10-04 15:49 | disposition home or self-care (01) ==
PROVIDERS: Visit Provider Orthopaedic Surgery
DX: S63.004A Unspecified dislocation of right wrist and hand, initial encounter (principal); G56.01 Carpal tunnel syndrome, right upper limb
CPT/HCPCS: 99024

== ENCOUNTER 2024-10-18 08:36 | Outpatient (REF) | payer OTHER, SELFPAY ==
--- NOTE | ~2024-10-18 | MR_ITS ---
EXAMINATION: MRI RIGHT SHOULDER WITHOUT CONTRAST HISTORY: M25.311 - Other instability, right shoulder COMPARISON: There are no prior studies for comparison. TECHNIQUE: Coronal T1, T2, and fat suppressed T2, axial fat suppressed proton density, and sagittal T2 weighted MR images of the right shoulder were obtained. FINDINGS: There is bone marrow edema in the humeral head. There is a suggestion of deformity of the posterolateral humeral head, suggestive of a Hill-Sachs injury. There are cystic changes in the region of the greater tuberosity of the humerus. The glenohumeral joint is maintained. The AC joint is maintained. There is a moderate glenohumeral joint effusion. There is a complete rupture of the supraspinatus tendon with retraction to the level of the AC joint. There is also a large full-thickness tear of the infraspinatus tendon. There is fluid in the subdeltoid/subacromial bursa. There is moderate atrophy of the supraspinatus muscle. The teres minor and subscapularis tendons are intact. The biceps tendon is normally located. The glenoid labrum is unremarkable in appearance. MR/MR shoulder RT wo con IMPRESSION: 1. Complete rupture of the supraspinatus tendon with tendon retraction or muscle atrophy. There is a large full-thickness tear of the infraspinatus tendon. 2. Bone marrow edema in the humeral head with a probable Hill-Sachs deformity. Electronically signed by: Carlitos Eldridge MD 10/19/2024 11:20 AM TESSY
--- NOTE | ~2024-10-18 | XR_ITS ---
EXAMINATION: Pre-MRI orbits. 4 views CLINICAL INDICATION: Metal in eye 10 years ago. COMPARISON: None. FINDINGS: There is no radiopaque foreign body seen in the orbits. Visualized paranasal sinuses and the bony smith of the sinuses are intact. The mastoid sinuses are clear. Visualized calvarium and the soft tissues are normal. XR/XR pre mri screening IMPRESSION: No radiopaque metallic foreign body seen in the orbits. Electronically signed by: Keenan Mckee MD 10/18/2024 09:11 AM TESSY
--- OUTSIDE RECORDS SUMMARY | 2024-10-18 08:57 | XMS_ITS | Clinical Summary ---
Author Organization [facility] [address] [place] [address] Address [address] [place] [address] Phone Care Team Providers Care Metal Forger'S Assistant Name Role Phone Sisi Roca MD Primary Care Prov ider Allergies Active Allergy Reactions Criticality Noted Date Comments Egg Nausea And Vomiting Low 04/23/2023 Medications Medication Sig Dispensed Refills Start Date End Date Status atorvastatin (LIPITOR) 80 mg tablet Take 1 Tablet by mouth daily. 12/23/2023 Active carvediloL (COREG) 12.5 mg tablet TAKE 1 TABLET BY MOUTH TWO TIMES A DAY WITH MEALS 12/14/2023 Active pantoprazole (PROTONIX) 20 mg EC tablet TAKE 1 TABLET BY MOUTH EVERY DAY 12/14/2023 Active bisacodyL (DULCOLAX) 5 mg EC tablet Take 2 tablets by mouth right before your first dose of liquid prep. 04/20/2023 Active aspirin 81 mg EC tablet Take 1 Tab by mouth daily. 05/16/2020 Active valsartan (DIOVAN) 320 mg tablet TAKE 1 TABLET BY MOUTH EVERY DAY. APPOINTMENT DUE [facility] FOR FURTHER REFILLS 90 tablet 10/02/2024 Active valsartan (DIOVAN) 320 mg tablet TAKE 1 TABLET BY MOUTH EVERY DAY 30 tablet 08/24/2024 Discontinued Active Problems Problem Noted Date Diagnosed Date History of ST elevation myocardial infarction (S CHRISTINE) 04/14/2023 Erectile dysfunction 11/06/2020 Bilateral carpal tunnel syndrome 11/06/2020 Hyperlipidemia LDL goal <70 04/28/2020 Overview (09/11/2024): Last Assessment & Plan: Continue high-dose atorvastatin 80 mg at bedtime Overweight (BMI 25.0-29.9) 04/25/2020 GERD (gastroesophageal reflux disease) 0 CAD (coronary artery disease) 11/02/2019 Overview (09/11/2024): - Presented with hypertensive emergency and ST elevation IA in September 2019 to [facility] where I met him in consultation-was transported immediately to [facility] for cardiac cath - Cardiac cath on 10/19/2019 showed normal left main, 55% mid LAD, 80% D1 stenosis, codominant circumflex with 85% mid circumflex stenosis, 50% OM 2 stenosis, 90% proximal RCA stenosis with subsequent 100% distal RCA stenosis with [id number] collaterals-PCI was performed to the mid circumflex and D1 lesions - Ventriculography during cath showed an EF of 60% with normal regional wall motion Last Assessment & Plan: Patient's V gram was normal at the time of presentation for his heart attack in 2019 however, his EKG abnormalities make me suspect possible hypertrophic cardiomyopathy at play and therefore I would like to get a baseline echocardiogram- we will order first available; continue atorvastatin 80 mg at bedtime, baby aspirin, Plavix can be discontinued as he has more than completed his 1 year course post stenting Hypertension 11/02/2019 Overview (09/11/2024): - Had hypertensive emergency at the time of his ST elevation IA that was treated transiently with nitro drip and labetalol boluses IV - Continues to have resistant hypertension in spite of being on multiple antihypertensive agents Last Assessment & Plan: Blood pressure was extremely elevated but improved on my recheck however is still suboptimally controlled; given 3 to 4% incidence of angioedema in black patients on SARAHY inhibitor, I do not favor using these agents as much in the black population; I would like to transition him to an ARB- I am starting him on valsartan [address] of his current lisinopril, we will repeat a basic metabolic panel in 2 to 4 weeks, continue current carvedilol 12.5 mg twice daily; I would like to do a basic secondary hypertension work-up given his young age at presentation with a renal artery duplex ultrasound; I would also like to have him return in a month for blood pressure check only Immunizations Name Administration Dates Next Due Moderna SARS-CoV-2 COVID-19, mRNA, LNP-S, preservative free 04/02/2021,03/05/2021 Tdap Tetanus diptheria acell ular pertussis (Boostrix; Adacel) 7yo and older 04/25/2020 Surgical History Surgery Date Site/Laterality Comments OTHER SURGICAL HISTORY 09/2019 PROCEDURE: ---- OTHER ----; COMMENT: Stent to left circumflex artery s/p NSTEMI Family History Medical History Relation Name Comments Coronary artery disease Brother 1 1/2 bro s/p IA age 36yo No Known Problems Brother 2 1/2 bro No Known Problems Brother 3 1/ bro Prostate cancer Father dx early 50y o Coronary artery disease Mother s/p IA age 62yo Hypertension Mother Other: ovarian cancer Mother's side first cousin Other cancer Sister 1 ?ovarian Other: ovarian cancer Sister 2 1 sis No Known Problems Son Allstein Relation Name Status Comments Brother 1 09/21 bro Alive Brother 2 09/21 bro Alive Brother 3 09/21 bro Alive Father Alive Mother Alive Mother's side first cousin Alive Sister 1 Sister 2 1/2 sis Alive Son Allstein Alive Social History Tobacco Use Types Packs/Day Years Used Date Smoking Tobacco: Every Day Smokeless Tobacco: Never Alcohol Use Standard Drinks/Week Comments Yes 0 (1 standard drink = 0.6 oz pur e alcohol) Sex and Gender Information Value Date Recorded Sex Assigned at Not on file Gender Identity Not on file Sexual Orientation Not on file Obstetrics History Last Filed Vital Signs Vital Sign Reading Time Taken Comments Blood Pressure 160/88 06/03/2023 9:34 AM EDT Pulse 66 04/16/2023 2:17 PM EDT Temperature - - Respiratory Rate - - Oxygen Saturation - - Inhaled Oxygen Concentration - - Weight 78.9 kg (174 lb) 06/03/2023 9:34 AM EDT Height 172.7 cm (5' 8 ) 06/03/2023 9:34 AM EDT Body Mass Index 26.46 06/03/2023 9:34 AM EDT Plan of Treatment Upcoming Encounters Date Type Department Care Team (Late st Contact Info) Description 12/12/2024 2:00 PM EDT Office Visit Adult Medicine [address] [phone] Sisi Roca MD [address] [place] [id number] Health Maintenance Due Date Last Done Comments Pneumococcal Vaccine: Pediatrics (0 to 5 Years) and At-Risk Patients (6 to 64 Years) (1 of 2 - PCV) 1981 Hepatitis B Vaccines (1 of 3 - 19+ 3-dose series) 1994 Colorectal Cancer Screening: Colonoscopy 08/29/2022 Depression Screening 08/29/2022 HIV Screening 08/29/2022 Social Influencers of Health Screening 08/29/2022 Hypertension/CHF/CAD Annual BMP Blood Test 08/24/2023 08/24/2022 COVID-19 Vaccine (3 - 2023-2 5 season) 2024 04/02/2021, 03/05/2021 Influenza Vaccine (#1) 2024 Cholesterol Screening (Lipid Panel) 08/24/2027 08/24/2022 DTaP,Tdap,and Td Vaccines (2 - Td or Tdap) 04/25/2030 04/25/2020 Hepatitis C Screening Completed 07/16/2021 HIB Vaccines Aged Out No longer eligi ble based on patient's age to complete this topic HPV Vaccines Aged Out No longer eligi ble based on patient's age to complete this topic Hepatitis A Vaccines Aged Out No long er eligible based on patient's age to complete this topic IPV Vaccines Aged Out No longer eligi ble based on patient's age to complete this topic MMR Vaccines Aged Out No longer eligi ble based on patient's age to complete this topic Meningococcal ACWY Vaccine Aged Out N o longer eligible based on patient's age to complete this topic RSV Immunization Patients Under 20 months Aged Out No longer eligible b ased on patient's age to complete this topic Varicella Vaccines Aged Out No longer eligible based on patient's age to complete this topic Procedures Procedure Name Priority Date/Time Associated Diagnosis Comments HM ANNUAL BMP BLOOD TEST Routine 08/24/2022 LIPID PANEL Routine 08/24/2022 HEPATITIS C SCREENING Routine 07/16/2021 from Last 3 Months or Most Recently Relevant to Health Maintenance Results * Annual BMP Blood Test (08/24/2022) Annual BMP Blood Test Abstracted Historical Provider MD AVELINO HALL E * Lipid panel (08/24/2022) Pathologist [facility] LDL/HDL Ratio 2 0 - 4 Triglycerides 65 0 - 150 mg/dL Cholesterol 149 0 - 200 mg/dL HDL 61 40 mg/dL LDL Cholesterol 75 0 - 100 mg/dL Blood Venous blood specimen / Unknown Historical Provider LAB BLOOD ORDERAB LES * Hepatitis C Screening (07/16/2021) Pathologist [facility] Hepatitis C Screening Abstracted Historical Provider MD AVELINO Mccall from Last 3 Months or Most Recently Relevant to Health Maintenance Care Teams Metal Forger'S Assistant Relationship Specialty Start Date End Date Sisi Roca MD PCP - General Internal Medicine 04/20/22
== END 2024-10-18 08:37 | disposition home or self-care (01) ==
LOC: HO.MRI 08:36
PROVIDERS: Visit Provider Orthopaedic Surgery
DX: M25.311 Other instability, right shoulder (principal)
CPT/HCPCS: 73221

== ENCOUNTER → 2024-10-18 08:38 | Outpatient (BNV) | payer OTHER, SELFPAY | PROVIDERS: Visit Provider Radiology Diagnostic Radiology | DX: S46.011A Strain of muscle(s) and tendon(s) of the rotator cuff of right shoulder, initial encounter (principal) | CPT/HCPCS: 73221 ==

== ENCOUNTER 2024-11-01 08:21 | Outpatient (REF) | payer OTHER, SELFPAY ==
--- NOTE | ~2024-11-01 | XR_ITS ---
EXAMINATION: XR WRIST, RIGHT CLINICAL INFORMATION: M25.531 - Pain in right wrist COMPARISON: October 04, 2024 TECHNIQUE: PA, lateral, and oblique views of the right wrist. FINDINGS: There is small, 9 mm radiopaque/metallic screw through the lunate. No acute cortical disruption or gross malalignment. No subcutaneous emphysema. XR/XR wrist RT min 3V IMPRESSION: Stable appearance of the postsurgical changes in the right wrist. Electronically signed by: Danny Diaz MD 11/01/2024 01:45 PM TESSY LOCK
--- OUTSIDE RECORDS SUMMARY | 2024-11-01 08:56 | XMS_ITS | Clinical Summary ---
Author Organization [facility] [address] [place] [address] Address [address] [place] [address] Phone Care Team Providers Care Tierce Filler Name Role Phone Sisi Roca MD Primary Care Prov ider Allergies Active Allergy Reactions Criticality Noted Date Comments Egg Nausea And Vomiting Low 04/23/2023 Medications atorvastatin (LIPITOR) 80 mg tablet Take 1 Tablet by mouth daily. 4 Active carvediloL (COREG) 12.5 mg tablet TAKE 1 TABLET BY MOUTH TWO TIMES A DAY WITH MEALS 4 Active pantoprazole (PROTONIX) 20 mg EC tablet TAKE 1 TABLET BY MOUTH EVERY DAY 4 Active bisacodyL (DULCOLAX) 5 mg EC tablet Take 2 tablets by mouth right before your first dose of liquid prep. 3 Active aspirin 81 mg EC tablet Take 1 Tab by mouth daily. 0 Active valsartan (DIOVAN) 320 mg tablet TAKE 1 TABLET BY MOUTH EVERY DAY. APPOINTMENT DUE [facility] FOR FURTHER REFILLS 90 tablet 5 Active Active Problems Problem Noted Date Diagnosed Date [...] Presented with hypertensive emergency and ST elevation DE in September 2019 to [facility] where I met him in consultation-was transported immediately to [facility] for cardiac cath - Cardiac cath on 10/19/2019 showed normal left main, 55% mid LAD, 80% D1 stenosis, codominant circumflex with 85% mid circumflex stenosis, 50% OM 2 stenosis, 90% proximal RCA stenosis with subsequent 100% distal RCA stenosis with [id number] collaterals-PCI was performed to the mid circumflex [...] at the time of his ST elevation DE that was treated transiently with nitro drip [...] artery disease Brother 1 1/2 bro s/p DE age 36yo No Known Problems Brother 2 1/2 bro No Known Problems Brother 3 1/ bro Prostate cancer Father dx early 50y o Coronary artery disease Mother s/p DE age 62yo Hypertension Mother Other: ovarian cancer Mother's side first cousin Other cancer Sister 1 ?ovarian Other: ovarian cancer Sister 2 1/ sis No Known Problems Son Allstein Relation Name Status Comments Brother 1 1/2 bro Alive Brother 2 1/2 bro Alive Brother 3 09/21 bro Alive Father Alive Mother Alive Mother's side first cousin Alive Sister 1 Sister 2 12 sis Alive Son Allstein Alive Social History Tobacco Use Types Packs/Day Years Used Date Smoking Tobacco: Every Day Smokeless Tobacco: Never Alcohol Use Standard Drinks/Week Comments Yes 0 (1 standard drink = 0.6 oz pur e alcohol) Sex and Gender Information Value Date Recorded Sex Assigned at Not on file Legal Sex Male 8:26 PM EST Gender Identity Not on file Sexual Orientation [...] 2:00 PM EDT Office Visit Adult Medicine [address] [phone] Sisi Roca MD [address] [place] [address] Health Maintenance Due Date Last Done Comments Hepatitis B Vaccines (1 of 3 - 19+ 3-dose series) 1994 Pneumococcal Vaccine: Pediatrics (0 to 5 Years) and At-Risk Patients (6 to 64 Years) (1 of 2 - PCV) 1994 Colorectal Cancer Screening: Colonoscopy 08/29/2022 Depression [...] patient's age to complete this topic Meningococcal B Vacine Aged Out No lo nger eligible based on patient's age to complete [...] Results * Annual BMP Blood Test (08/24/2022) Pathologist [facility] Annual BMP Blood Test Abstracted Historical Provider HEALTH MAINTENANCE Final Result * Lipid panel (08/24/2022) [facility] LDL/HDL Ratio 2 0 - 4 Triglycerides 65 0 - 150 mg/dL Cholesterol 149 0 - 200 mg/dL HDL 61 >=40 mg/dL LDL Cholesterol 75 0 - 100 mg/dL Blood Venous blood specimen / Unknown [facility] Provider LAB BLOOD ORDERABLES Akua l Result * Hepatitis C Screening (07/16/2021) Pathologist [facility] Hepatitis C Screening Abstracted Historical Provider HEALTH MAINTENANCE Final Result from Last 3 Months or Most Recently Relevant to Health Maintenance Insurance [facility] Care Teams Tierce Filler Relationship Specialty Start Date End Date Sisi Roca MD PCP - General Internal Medicine 04/20/22
== END 2024-11-01 08:22 | disposition home or self-care (01) ==
LOC: HO.HOSX 08:21
PROVIDERS: Visit Provider Orthopaedic Surgery
DX: M25.531 Pain in right wrist (principal); S63.004A Unspecified dislocation of right wrist and hand, initial encounter; G56.01 Carpal tunnel syndrome, right upper limb
CPT/HCPCS: 73110; 99212

== ENCOUNTER 2024-11-01 13:30 | Outpatient (AMB) | payer OTHER, SELFPAY ==
--- NOTE | 2024-11-01 14:14 | A.OFFVIS_ITS ---
Intake Visit Reasons: PO-RT wrist dislocation ORIF 08/10/24 AR-w/o xrays Intake Note: Arben is a 49 year old -- hand dominant male who presents today for a post operative appointment s/p Right Wrist ORIF 08/10/24. Patient reports that he continues to work with physical therapy and is doing well. He has no current concerns at this time. He would like to obtain a new PT order that allows them to work with weighted activites. Allergies egg Adverse Reaction (Verified 10/04/24 15:31) Nausea and Vomiting HPI HPI PO-RT wrist dislocation ORIF 08/10/24 AR-w/o xrays: Details: Vlad is a 49 year old right hand dominant man who presents S/P right wrist ORIF, carpal tunnel release, scapholunate ligament repair, lunotriquetral ligament repair, EPL tendon transposition & osteotomy of Brandt's tubercle, neuroectomy of posterior interosseous nerve at the radiocarpal joint, DOS: 08/10/24. 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 He was seen in the ED on 08/09/24 where a reduction was attempted. He says he is doing well and denies any pain in his wrist. He wants to begin strengthening exercises with OT hand therapy [facility] Medical History Elevated cholesterol HTN (hypertension) Myocardial infarction Surgical History H/O colonoscopy Social History Patient Tobacco Use Status: Never used Tobacco Current occupation: rt hand/ [employer] Review of Systems Const All systems reviewed & are unremarkable except as noted in HPI and below Physical Exam Const General: no acute distress and alert Orientation/consciousness: patient oriented x3 Neuro General: patient oriented x3 Extrem Other: Evaluation of Right Upper Extremity: The patient is alert, oriented, and in no acute distress Neuro: Median, Ulnar, Radial nerves motor and sensory intact and sensation is normal to the tips of all digits Vascular: Cap refill brisk ROM: He can make a fist and extend all of his digits. Full & symmetrical pronosupination ~15-20 degrees wrist flexion ~10 degrees wrist extension Radiographs: Three views of his right wrist were taken again today and reviewed by me in clinic. They show satisfactory carpal alignment, and position the suture anchor. Psych Appearance: grossly normal Affect: normal affect Attitude: cooperative Assessment & Plan Assessment & Plan (1) Dislocation of right wrist: Code(s): S63.004A - Unspecified dislocation of right wrist and hand, initial encounter Category: Medical (2) Carpal tunnel syndrome of right wrist: Code(s): G56.01 - Carpal tunnel syndrome, right upper limb Category: Medical Plan Assessment & Plan: 1. Right wrist perilunate midcarpal dislocation, S/P A. Wrist dislocation ORIF B. scapholunate ligament repair C. lunotriquetral ligament repair D. EPL tendon transposition & osteotomy of Brandt's tubercle E. neuroectomy of posterior interosseous nerve at the radiocarpal joint From a fall off a roof, DOI: 08/09/24 DOS: 08/10/24 K-wires removed 09/19/24 This is a work related injury 2. Injury related Right carpal tunnel syndrome, S/P release DOS: 08/10/2024 Pre-operatively with numbness Now with normal sensation The patient appears to be doing well post-operatively I educated him and his about the post-operative course He will discontinue his splint at this time He will continue with his at-home exercises. He should avoid any heavy impact activities or repetitive activities, such as heavy lifting, chopping wood, or use of a hammer/wrench while at work. I ordered OT hand therapy to work on weight bearing, strengthening, along with continued ROM exercises & normalizing function I explained that it is unlikely for his wrist ROM exercises to continue to improve, and would likely be limited going forward. He is also at increased risk of developing wrist arthritis going forward. He works for an [employer]. I was going to say follow up p.r.n., but as this is a workman's comp injury we probably ought to see him back in 6-8 weeks to discuss possible return to light duty at that time. Scribed for Marybeth Mckenzie MD by Lui Mendez, director of medical staff services, on 11/01/24 at 2:20 PM, EST. Orders: Orders XR wrist RT min 3V Today M25.531 - Pain in right wrist OT Evaluation and Treatment Today G56.01 - Carpal tunnel syndrome, right upper limb, S63.004A - Unspecified dislocation of right wrist and hand, initial encounter Coding Level of Care Code Est Pt Level 3 (80607) Diagnoses Dislocation of right wrist S63.004A Carpal tunnel syndrome of right wrist G56.01
--- OUTSIDE RECORDS SUMMARY | 2024-11-01 14:55 | XMS_ITS | Clinical Summary ---
Author Organization [facility] [address] [place] [address] Address [address] [place] [address] Phone Care Team Providers Care Creative Art Therapist Name Role Phone Sisi Roca MD Primary [...] TABLET BY MOUTH EVERY DAY. APPOINTMENT DUE [facility] FOR FURTHER REFILLS 90 tablet 5 Active [...] Presented with hypertensive emergency and ST elevation [place] in September 2019 to [facility] where I met him in consultation-was transported immediately to [facility] for cardiac cath - Cardiac cath on 10/19/2019 showed normal left main, 55% mid LAD, 80% D1 stenosis, codominant circumflex with 85% mid circumflex stenosis, 50% OM 2 stenosis, 90% proximal RCA stenosis with subsequent 100% distal RCA stenosis with [id number] collaterals-PCI was performed to the mid circumflex [...] at the time of his ST elevation [place] that was treated transiently with nitro drip [...] artery disease Brother 1 1/2 bro s/p [place] age 36yo No Known Problems Brother 2 1/2 bro No Known Problems Brother 3 1/ bro Prostate cancer Father dx early 50y o Coronary artery disease Mother s/p [place] age 62yo Hypertension Mother Other: ovarian cancer [...] 2:00 PM EDT Office Visit Adult Medicine [address] [phone] Sisi Roca MD [address] [place] [address] Health Maintenance Due Date Last Done Comments [...] * Annual BMP Blood Test (08/24/2022) Pathologist [facility] Annual BMP Blood Test Abstracted Historical Provider HEALTH MAINTENANCE Final Result * Lipid panel (08/24/2022) [facility] LDL/HDL Ratio 2 0 - 4 Triglycerides 65 0 - 150 mg/dL Cholesterol 149 0 - 200 mg/dL HDL 61 >=40 mg/dL LDL Cholesterol 75 0 - 100 mg/dL Blood Venous blood specimen / Unknown [facility] Provider LAB BLOOD ORDERABLES Akua l Result * Hepatitis C Screening (07/16/2021) Pathologist [facility] Hepatitis C Screening Abstracted Historical Provider HEALTH MAINTENANCE Final Result from Last 3 Months or Most Recently Relevant to Health Maintenance Insurance [facility] Care Teams Creative Art Therapist Relationship Specialty Start Date End Date Sisi Roca MD PCP - General Internal Medicine 04/20/22
== END 2024-11-01 14:36 | disposition home or self-care (01) ==
PROVIDERS: Visit Provider Orthopaedic Surgery
DX: S63.004A Unspecified dislocation of right wrist and hand, initial encounter (principal); G56.01 Carpal tunnel syndrome, right upper limb
CPT/HCPCS: 99213

== ENCOUNTER → 2024-11-01 13:31 | Outpatient (BNV) | payer OTHER, SELFPAY | PROVIDERS: Visit Provider Radiology Diagnostic Radiology | DX: M25.531 Pain in right wrist (principal) | CPT/HCPCS: 73110 ==

== ENCOUNTER 2024-11-10 15:29 | Outpatient (RCR) | payer OTHER, SELFPAY ==
--- NOTE | 2024-10-16 14:13 | MHC.OT.OEV ---
[address] [phone] F: [phone] Occupational Therapy Evaluation Patient Name: Vlad Theodore Diagnosis: (R)Wrist dislocation ORIF Date of Onset: 08/09/24 Date of Surgery: 08/10/24 Attending Provider: Marybeth Mckenzie Prescribed Treatment: Follow Up Appointment: History of Current Condition: Patient is a 49 year old right hand dominant male S/P 08/10 right wrist ORIF, carpal tunnel release, scapholunate ligament repair, lunotriquetral ligament repair, EPL tendon transposition & osteotomy of Brandt's tubercle, neuroectomy of posterior interosseous nerve at the radiocarpal joint who was referred to skilled OT. Patient reported he fell off ladder while at work when he dropped a duct and stuck out his arm to brace himself. He reports 2/10 during movement and 0/10 pain at rest. Denies numbness/tingling. 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 He reports his PLOF as (I)ADLs/ IADLs. He enjoys watching [employer] and football. 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 [employer] Living Situation, Family and/or Social Support: Lives with and children Current Level of Function and Occupation Self Care, Employment, Leisure: On light duty Sleep: Driving: Vision: Balance: Pain Assessment Pain Score: 2 Pain Scale Used: Numeric (0 - 10) Pain Location and Description: (R)wrist 2/10 during movement Aggravating Factors: Alleviating Factors: Skin and Soft Tissue Assessment Skin and Soft Tissue: Comments: Nerve assessment Ulnar Nerve: Median Nerve: Radial Nerve: Comments: Sensory Assessment Temperature: Light Touch: Proprioception: Vibration: Comments: Edema Assessment Upper Extremity: Lower Extremity: Comments: wrist (R) edema= 18cm Dexterity Assessment Dexterity: Comments: Special Tests Comments: AROM(PROM) Strength Cervical Cervical Flexion: Cervical Extension: Cervical Lateral Flexion: Cervical Rotation: Comments: Shoulder Flexion: 30* Extension: WNLs Abduction: 45* Internal Rotation: External Rotation: 75* Comments: pain 5/10- constantly Flexion: Extension: Abduction: Internal Rotation: External Rotation: Comments: Elbow Flexion: Extension: Pronation: Supination: Comments: Flexion: Extension: Pronation: Supination: Comments: Wrist Flexion: 16* Extension: 21* Ulnar Deviation: 25 Radial Deviation: 27* Comments: Flexion: Extension: Ulnar Deviation: Radial Deviation: Comments: N/A Thumb Thumb CMC Flexion: Thumb MCP Flexion: Thumb IP Flexion: Radial Abduction: Palmar Abduction: [place] (Kapandji 0-10): Comments: Digits Index MCP: PIP: DIP: Long MCP: PIP: DIP: Ring MCP: PIP: DIP: Small MCP: PIP: DIP: Comments: all digits WFLs Gross Grasp: Lateral Pinch: Two-Point Pinch: Three-Jaw Иван: Comments: N/A Patient Education Primary Language: Residential Therapist Required: Current Knowledge: Teaching Method: Education Needs Identified on Evaluation: How did patient/family demonstrate learning? Barriers to Learning: Readiness for Learning: Who was educated? Comments: Plan of Care Assessment: Based on initial OT evaluation patient presents with impaired ROM, impaired strength, impaired coordination and impaired self care performance. Per MD orders patient will begin gentle ROM. Strength will not be addressed until medically cleared. It was also observed patient has limited shoulder ROM and pain, he has an MRI scheduled for 11/04. At this time patient requires skilled OT intervention in order to progress patient to achieve his PLOF of (I) during self care tasks. 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 Goals: Alf Goals will be updated as patient progresses Frequency and Duration: The patient will be seen 1x a week for 4 weeks Treatment Plan: Therapeutic Exercise Therapeutic Activity Home Exercise Program Patient Education Desensitization/Sensory Re-ed Edema Control ADL Training Ultrasound NMES Iontophoresis Paraffin Fluidotherapy MHP Cold Packs Joint Mobilization Soft Tissue Mobilization Kinesiotaping Other (see comments) skilled OT eval and treat Electronically Signed By: Brittany Dorsey OTR/L, CLT Reviewed/agree with student documentation: Therapist: Please sign and return to therapist, Thank you for your referral.
--- NOTE | 2024-11-13 16:20 | MHC.OT.OP ---
[address] [phone] F: [phone] Occupational Therapy Progress Note Patient Name: Vlad Theodore Diagnosis: (R)Wrist dislocation ORIF Date of Surgery: 08/10/24 Date of Evaluation: 10/13/24 Treatments to Date: 5 Cancellations to Date: No Shows to Date: Subjective: Oh, it feels so loose. Pain Score: 2 Pain Location: (R)wrist Objective Measures: Status: Assessment: Patient had f/u with surgeon on 11/01 and orders were updated allowing patient to strengthening affected UE. Per medical report ROM assessment was taken which revealed patient has not increased his wrist AROM since his initial OT evaluation. Initially patient was limited in his participation during therapy due to his restrictions but as of 11/01 skilled OT will be able to slowly advance patient. Patient requires continues to require skilled OT in order to increase wrist AROM and to initiate strengthening to achieve his goal of returning to work on full duty and to be (I) with his self care tasks. Short Term Goals: Patient will have increased wrist flexion by 5* - NOT MET Patient will have increased wrist extension by 5* - NOT MET Patient will have increased wrist RD/UD by 5* - NOT MET Make a full composite fist - GOAL MET Patient will be (I) with HEP- MET and ADVANCING (patient has been cleared to begin strengthening ) Manager Women Goals: Patient will be (I) with HEP- NOT MET Frequency and Duration: The patient will be seen 2x a week for 4 weeks Treatment Plan: Therapeutic Exercise Therapeutic Activity Home Exercise Program Splinting Patient Education Edema Control ADL Training Ultrasound NMES Iontophoresis Paraffin Fluidotherapy MHP Cold Packs Joint Mobilization Soft Tissue Mobilization Kinesiotaping Other (see comments) skilled OT eval and treat Electronically Signed By: ERIK Paula/L, CLT Reviewed/agree with student documentation: Therapist:
--- NOTE | 2024-12-06 15:39 | MHC.OT.DC ---
[address] [phone] F: [phone] Occupational Therapy Discharge Note Patient Name: Vlad Theodore Provider: Marybeth Mckenzie Diagnosis: (R)Wrist dislocation ORIF Date of Surgery: 08/10/24 Date of Evaluation: 10/13/24 Date of Discharge: Treatments to Date: 5 Cancellations to Date: No Shows to Date: Discharge Status: Visit Non-compliance Discharge Summary: Pt no snowso 12/06, 12/01, 11/27 Electronically Signed By: Татьяна Valle OTR/L Reviewed/agree with student documentation: Therapist: Please Sign and return to therapist, thank you for your referral.
== END 2024-12-06 15:40 | disposition home or self-care (01) ==
LOC: HO.OT 15:29
PROVIDERS: Visit Provider Orthopaedic Surgery
DX: S63.004D Unspecified dislocation of right wrist and hand, subsequent encounter (principal); G56.01 Carpal tunnel syndrome, right upper limb
CPT/HCPCS: 97110; 97140; 97166

== ENCOUNTER 2025-01-25 14:47 | Outpatient (AMB) | payer OTHER, SELFPAY ==
--- NOTE | 2025-01-25 14:48 | MHC.OFFVIS ---
Intake Visit Reasons: OV-RT shoulder replacement-discuss surgery Intake Note: Vlad is a 49 year old right hand dominant male who presents today for a follow up of his right shoulder. Patient was working on a ladder 08/09/2004 when he fell and landed on his right arm. Allergies egg Adverse Reaction (Verified 10/04/24 15:31) Nausea and Vomiting HPI HPI OV-RT shoulder replacement-discuss surgery: Details: Vlad is a 49 year old right hand dominant male who presents today for a follow up of his right shoulder. Patient was working on a ladder 08/09/2024 when he fell and landed on his right arm at work. He felt immediate shoulder pain. This produced a axial force driving up into his shoulder. He also sustained a perilunate dislocation at this time. This was treated by Dr. Mckenzie and he came to see Dr. Sanchez on 09/28/24. An MRI was obtained and he comes in today for follow up. He has been unable to abduct his arm and feels very weak. He has been trying to work. 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 IMPRESSION: 1. Complete rupture of the supraspinatus tendon with tendon retraction or muscle atrophy. There is a large full-thickness tear of the infraspinatus tendon. 2. Bone marrow edema in the humeral head with a probable Hill-Sachs deformity. Assessment & Plan Assessment & Plan (1) Complete tear of right rotator cuff: Code(s): M75.121 - Complete rotator cuff tear or rupture of right shoulder, not specified as traumatic Category: Medical Plan: This is a 49 yo with a complete right shoulder RTC tear. It is retracted but he endorses full strength and motion prior to fall. I recommend RTC repair. I explained the surgery to him and the I discussed the risks,benefits and alternatives including but not limited to the risk of pain, infection, stiffness, reinjury, need for further surgery as well as the possibility that it is unrepairable.I explained potential medical complications such as blood clots, pulmonary embolism and cardiac complications. He expressed understanding and we will proceed forward accordingly. I recommend he abstain from lifting before surgery. I explained the recovery time as well. He expressed understanding Coding Level of Care Code Est Pt Level 4 (01617) Diagnoses Complete tear of right rotator cuff M75.121
--- OUTSIDE RECORDS SUMMARY | 2025-01-25 15:27 | XMS_ITS | Clinical Summary ---
Author Organization [facility] [address] [place] [address] Address [address] [place] [address] Phone Care Team Providers Care Adoption Services Manager Name Role Phone Sisi Roca MD Primary Care Prov ider Allergies Active Allergy Reactions Criticality Noted Date Comments Egg Nausea And Vomiting Low 04/23/2023 Medications pantoprazole (PROTONIX) 20 mg EC tablet TAKE 1 TABLET BY MOUTH EVERY DAY 4 Active aspirin 81 mg EC tablet Take 1 Tab by mouth daily. 0 Active atorvastatin (LIPITOR) 80 mg tablet Take 1 tablet (80 mg total) by mouth 1 (one) time each day. 90 each 3 5 12/13/19 26 Active valsartan (DIOVAN) 320 mg tablet TAKE 1 TABLET BY MOUTH EVERY DAY. APPOINTMENT DUE [facility] FOR FURTHER REFILLS 90 tablet 3 5 Active mometasone (ELOCON) 0.1 % ointment Apply topically 1 (one) time each day. 15 g 3 5 Active Active Problems Problem Noted Date [...] Presented with hypertensive emergency and ST elevation [place] in September 2019 to [facility] where I met him in consultation-was transported immediately to [facility] for cardiac cath - Cardiac cath on 10/19/2019 showed normal left main, 55% mid LAD, 80% D1 stenosis, codominant circumflex with 85% mid circumflex stenosis, 50% OM 2 stenosis, 90% proximal RCA stenosis with subsequent 100% distal RCA stenosis with [id number] collaterals-PCI was performed to the mid circumflex [...] at the time of his ST elevation NE that was treated transiently with nitro drip [...] a month for blood pressure check only Encounters Date Type Department Care Team Description 12/12/2024 2:00 PM EDT Office Visit Adult Medicine [address] [phone] Sisi Roca MD Adult general medical examination (Primary Dx) from Last 3 Months Immunizations Name Administration Dates Next Due Moderna SARS-CoV-2 COVID-19, mRNA, LNP-S, preservative free 04/02/2021,03/05/2021 Tdap Tetanus diptheria acell ular pertussis (Boostrix; Adacel) 7yo and older 04/25/2020 Surgical History Surgery Date Site/Laterality Comments OTHER SURGICAL HISTORY 09/2019 PROCEDURE: ---- OTHER ----; COMMENT: Stent to left circumflex artery s/p NSTEMI Family History Medical History Relation Name Comments Coronary artery disease Brother 1 1/2 bro s/p NE age 36yo No Known Problems Brother 2 1/2 bro No Known Problems Brother 3 1/2 bro Prostate cancer Father dx early 50y o Coronary artery disease Mother s/p NE age 62yo Hypertension Mother Other: ovarian cancer Mother's side first cousin Other cancer Sister 1 ?ovarian Other: ovarian cancer Sister 2 1/2 sis No Known Problems Son Allstein Relation Name Status Comments Brother 1 1/2 bro Alive Brother 2 1/2 bro Alive Brother 3 1/2 bro Alive Father Alive Mother Alive Mother's [...] Sign Reading Time Taken Comments Blood Pressure 130/70 12/12/2024 2:28 PM EDT Pulse 74 12/12/2024 1:58 PM EDT Temperature 36.4 ??C (97.6 ??F) 12/12/2024 1:58 PM ED T Respiratory Rate 16 12/12/2024 1:58 PM EDT Oxygen Saturation - - Inhaled Oxygen Concentration - - Weight 76.2 kg (168 lb) 12/12/2024 1:58 PM EDT Height 172.7 cm (5' 8 ) 12/12/2024 1:58 PM EDT Body Mass Index 25.54 12/12/2024 1:58 PM EDT Plan of Treatment Upcoming Encounters Date Type Department Care Team (Late st Contact Info) Description 06/14/2025 1:00 PM EDT Office Visit Adult Medicine [facility] [address] [place] [address] Sisi Roca MD [address] [place] [address] Health Maintenance Due Date Last Done Comments Hepatitis B Vaccines (1 of 3 - 19+ 3-dose series) 1994 Pneumococcal Vaccine: Pediatrics (0 to 5 Years) and At-Risk Patients (6 to 64 Years) (1 of 2 - PCV) 1994 HIV Screening 08/29/2022 Social Influencers of Health Screening 08/29/2022 Hypertension/CHF/CAD Annual BMP Blood Test 08/24/2023 08/24/2022 Depression Screening 12/12/2025 12/12/2024 Cholesterol Screening (Lipid Panel) 08/24/2027 08/24/2022 DTaP,Tdap,and Td Vaccines (2 - Td or Tdap) 04/25/2030 04/25/2020 Colorectal Cancer Screening: Colonoscopy 05/04/2033 05/04/2023 COVID-19 Vaccine Discontinued 04/02/2021, 03/05/2021 Hepatitis C Screening Completed 07/16/2021 HIB Vaccines [...] on patient's age to complete this topic Influenza Vaccine Discontinued MMR Vaccines Aged Out No longer eligi ble based on patient's age to complete this topic Meningococcal ACWY Vaccine Aged Out N o longer eligible based on patient's age to complete this topic Meningococcal B Vaccine Aged Out No l onger eligible based on patient's age to complete this topic RSV Immunization Patients Under 20 months Aged Out No longer eligible based on patient's age to complete this topic Varicella Vaccines Aged Out No longer eligible based on patient's age to complete this topic Procedures Procedure Name Priority Date/Time Associated Diagnosis Comments ANNUAL BMP BLOOD TEST Routine 08/24/2022 LIPID PANEL Routine 08/24/2022 HEPATITIS C SCREENING Routine 07/16/2021 from Last 3 Months or Most Recently Relevant to Health Maintenance Results * Annual BMP Blood Test (08/24/2022) Annual BMP Blood Test Abstracted [facility] Provider HEALTH MAINTENANCE Final Result * Lipid panel (08/24/2022) Pathologist [facility] LDL/HDL Ratio 2 0 - 4 Triglycerides 65 0 - 150 mg/dL Cholesterol 149 0 - 200 mg/dL HDL 61 >=40 mg/dL LDL Cholesterol 75 0 - 100 mg/dL Blood Venous blood specimen / Unknown [facility] Provider LAB BLOOD ORDERABLES Akua l Result * Hepatitis C Screening (07/16/2021) Pathologist [facility] Hepatitis C Screening Abstracted [facility] Provider HEALTH MAINTENANCE Final Result from Last 3 Months or Most Recently Relevant to Health Maintenance Insurance [facility] Care Teams Adoption Services Manager Relationship Specialty Start Date End Date Sisi Roca MD [address] [place] [id number] PCP - General Internal Medicine 12/12/24
== END 2025-01-25 15:23 | disposition home or self-care (01) ==
LOC: HO.HOS 14:47
PROVIDERS: Visit Provider Orthopaedic Surgery
DX: S46.011A Strain of muscle(s) and tendon(s) of the rotator cuff of right shoulder, initial encounter (principal)
CPT/HCPCS: 99214

== ENCOUNTER → 2025-01-25 14:47 | Outpatient (BNVA) | payer OTHER, SELFPAY | PROVIDERS: Visit Provider Orthopaedic Surgery | DX: M75.121 Complete rotator cuff tear or rupture of right shoulder, not specified as traumatic (principal) | CPT/HCPCS: 99212 ==

== ENCOUNTER → 2025-02-27 10:22 | Outpatient (BNV) | payer OTHER, SELFPAY | PROVIDERS: PCP Internal Medicine; Visit Provider Internal Medicine Cardiovascular Disease | DX: R94.31 Abnormal electrocardiogram [ECG] [EKG] (principal); Z01.810 Encounter for preprocedural cardiovascular examination | CPT/HCPCS: 93010 ==

== ENCOUNTER 2025-02-28 07:55 | Day surgery (SDC) | payer OTHER, SELFPAY ==
--- OUTSIDE RECORDS SUMMARY | 2025-02-02 11:52 | XMS_ITS | Clinical Summary ---
Author Organization [facility] [address] [place] [address] Address [address] [place] [address] Phone Care Team Providers Care Ham Marker Name Role Phone Sisi Roca MD Primary [...] Presented with hypertensive emergency and ST elevation [place] in September 2019 to [facility] where I met him in consultation-was transported immediately to [facility] for cardiac cath - Cardiac cath on 10/19/2019 showed normal left main, 55% mid LAD, 80% D1 stenosis, codominant circumflex with 85% mid circumflex stenosis, 50% OM 2 stenosis, 90% proximal RCA stenosis with subsequent 100% distal RCA stenosis with [id number] collaterals-PCI was performed to the mid circumflex [...] at the time of his ST elevation [place] that was treated transiently with nitro drip [...] 2:00 PM EDT Office Visit Adult Medicine [address] [phone] Sisi Roca MD Adult general medical examination [...] artery disease Brother 1 1/2 bro s/p [place] age 36yo No Known Problems Brother 2 1/2 bro No Known Problems Brother 3 1/2 bro Prostate cancer Father dx early 50y o Coronary artery disease Mother s/p [place] age 62yo Hypertension Mother Other: ovarian cancer [...] 1:00 PM EDT Office Visit Adult Medicine [facility] [address] [place] [address] Sisi Roca MD [address] [place] [address] Health Maintenance Due Date Last Done Comments [...] Test (08/24/2022) Annual BMP Blood Test Abstracted [facility] Provider HEALTH MAINTENANCE Final Result * Lipid panel (08/24/2022) Pathologist [facility] LDL/HDL Ratio 2 0 - 4 Triglycerides 65 0 - 150 mg/dL Cholesterol 149 0 - 200 mg/dL HDL 61 >=40 mg/dL LDL Cholesterol 75 0 - 100 mg/dL Blood Venous blood specimen / Unknown [facility] Provider LAB BLOOD ORDERABLES Akua l Result * Hepatitis C Screening (07/16/2021) Pathologist [facility] Hepatitis C Screening Abstracted [facility] Provider HEALTH MAINTENANCE Final Result from Last 3 Months or Most Recently Relevant to Health Maintenance Insurance [facility] Care Teams Ham Marker Relationship Specialty Start Date End Date Sisi Roca MD [address] [place] [id number] PCP - General Internal Medicine 12/12/24
[2025-02-26 08:13] VITALS: BMI 26.5
--- NOTE | 2025-02-26 12:12 | HO.ANESPROP2 ---
Documented by User: Brittany Kapoor NP 02/27/25 14:01 HPI - Anesthesia Eval Consult details Narrative: 49yo M for Right Arthroscopic Rotator Cuff Repair s/p wrist ORIF 07/2024 with GA-LMA 4, block CAD s/p LA and PCI 2019 - last cardiology office visit with [facility] 2022. Stable with regular exercise and physical job. Echo OK at that time. Stable with PCP physical 11/2024. Pt was not booked for PAT. Labs and EKG to be done DOS-1 [facility] Active Problems Active Problems: All Active Problems Complete tear of right rotator cuff (Acute) Rotator cuff insufficiency of right shoulder (Acute) Right shoulder injury (Acute) Carpal tunnel syndrome of right wrist (Acute) Dislocation of right wrist (Acute) Past Medical History Medical History Erectile dysfunction Hyperlipidemia CAD (coronary artery disease) GERD (gastroesophageal reflux disease) Elevated cholesterol HTN (hypertension) Myocardial infarction Family History Family history of problems with anesthesia: No Surgical History Surgical History History of surgery on wrist History of coronary artery stent placement H/O colonoscopy History of Problems with Anesthesia: No Social History Social History Patient Tobacco Use Status: Never used Tobacco Have you been hit, kicked, punched, or otherwise hurt by someone within the past year? 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[employer] Meds Allergies Allergy/AdvReac Type Severity Reaction Status Date / Time egg AdvReac Nausea and Verified 10/04/24 15:31 Vomiting Home Medications ?Medication ?Instructions ?Recorded ?Confirmed ?Last Taken ?Type aspirin 81 mg tablet 81 mg PO DAILY 08/10/24 02/28/25 02/27/25 History atorvastatin 80 mg tablet 80 mg PO BEDTIME 08/10/24 02/26/25 Unknown History carvedilol 12.5 mg tablet 12.5 mg PO BID 08/10/24 02/26/25 Unknown History valsartan 320 mg tablet 320 mg PO DAILY 08/10/24 02/26/25 Unknown History Exam Height,Weight and Vital Signs: Height 5 ft 8 in Weight 79 kg Pertinent Lab Results Pertinent Lab Results: Lab Results 02/27/25 Range/Units 10:48 WBC 4.4 L (4.8-10.8) X10*3/uL RBC 4.58 L (4.60-5.80) X10*6/uL Hgb 14.0 (14.0-18.0) g/dl Hct 42.1 (42.0-52.0) % MCV 91.9 (80.0-98.0) fL MCH 30.6 (27.0-33.0) pg MCHC 33.3 (31.0-36.0) g/dl RDW 12.9 (11.0-16.0) % Plt Count 234 (160-400) X10*3/uL MPV 9.4 (9.4-12.4) fL Absolute Nucleated RBC 0.000 (0.0-0.012) X10*3/uL Nucleated RBC % (auto) 0.0 (0.0-0.2) /100WBC Sodium 142 (135-145) mmol/L Potassium 3.7 (3.3-5.1) mmol/L Chloride 108 (96-108) mmol/L Carbon Dioxide 28 (22-29) mmol/L Anion Gap 10 L (12-20) BUN 13 (9-16) mg/dL Creatinine 0.93 (0.5-1.4) mg/dL Estim Creat Clear Calc 92.9 Estimated GFR > 60 Random Glucose 68 (60-115) mg/dL Calcium 8.8 (8.4-10.2) mg/dL Narrative Narrative: EKG 02/2025 Vent. Rate : 69 BPM Atrial Rate : 69 BPM P-R Int : 162 ms QRS Dur : 78 ms QT Int : 380 ms P-R-T Axes : 52 57 -85 degrees QTcB Int : 407 ms Normal sinus rhythm Minimal voltage criteria for LVH, may be normal variant ( Sokolow-Martinez ) ST & T wave abnormality, consider inferolateral ischemia v/s repolarization abnormality Abnormal ECG No previous ECGs available *No change from previous outside EKG* Assessment and Plan Assessment Anesthesia Assessment: Chart Reviewed Final Anesthetic Review Family History of Problems with Anesthesia: No History of Problems with Anesthesia: No Documented by User: Dixie Alves MD 02/28/25 10:42 PMFSH Past Medical History Medical History Erectile dysfunction Hyperlipidemia CAD (coronary artery disease) GERD (gastroesophageal reflux disease) Elevated cholesterol HTN (hypertension) Myocardial infarction Surgical History Surgical History History of surgery on wrist History of coronary artery stent placement H/O colonoscopy Social History Social History Patient Tobacco Use Status: Never used Tobacco Have you been hit, kicked, punched, or otherwise hurt by someone within the past year? 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[employer] Meds Allergies Allergy/AdvReac Type Severity Reaction Status Date / Time egg AdvReac Nausea and Verified 10/04/24 15:31 Vomiting Home Medications ?Medication ?Instructions ?Recorded ?Confirmed ?Last Taken ?Type aspirin 81 mg tablet 81 mg PO DAILY 08/10/24 02/28/25 02/27/25 History atorvastatin 80 mg tablet 80 mg PO BEDTIME 08/10/24 02/26/25 Unknown History carvedilol 12.5 mg tablet 12.5 mg PO BID 08/10/24 02/26/25 Unknown History valsartan 320 mg tablet 320 mg PO DAILY 08/10/24 02/26/25 Unknown History Exam Airway Mallampati Class: III TM Dist: <=3cm Neck ROM: Limited Heart: rrr Lungs: cta Assessment and Plan Assessment Anesthesia Assessment: Anesthesia Plan Discussed Final Anesthetic Review NPO: Yes ASA Class: III Final Preanesthetic Review: No Changes in Pt Med Stat, Meds/Allgs Chart Reviewed, Consent Obtained/Reviewed and Anes Risks/Benef Reviewed Patient Risk: Intermediate Procedure Risk: Intermediate Anesthetic Plan Anesthetic Plan: GA, Regional Block and Agree w/ Assess. and Plan Disposition: Standard PACU
--- NOTE | 2025-02-27 10:22 | ECG_ITS ---
Test Reason : preop Blood Pressure : */* mmHG Vent. Rate : 69 BPM Atrial Rate : 69 BPM P-R Int : 162 ms QRS Dur : 78 ms QT Int : 380 ms P-R-T Axes : 52 57 -85 degrees QTcB Int : 407 ms Normal sinus rhythm Minimal voltage criteria for LVH, may be normal variant ( Sokolow-Martinez ) ST & T wave abnormality, consider inferolateral ischemia v/s repolarization abnormality Abnormal ECG No previous ECGs available Referred By: Brittany Kapoor Electronically Signed By: SURINDER VENEGAS MD
[2025-02-27 11:25] LABS: Hematocrit 42.1 % (42.0-52.0); Mean Corpuscular HGB Conc 33.3 g/dl (31.0-36.0); Mean Corpuscular Hemoglobin 30.6 pg (27.0-33.0); Mean Corpuscular Volume 91.9 fL (80.0-98.0); Mean Platelet Volume 9.4 fL (9.4-12.4); Platelet Count 234 X10*3/uL (160-400); Red Blood Count 4.58 X10*6/uL (4.60-5.80); Red Cell Distribution Width 12.9 % (11.0-16.0); White Blood Count 4.4 X10*3/uL (4.8-10.8)
[2025-02-27 11:40] LABS: Anion Gap 10 (12-20); Blood Urea Nitrogen 13 mg/dL (9-16); Calcium 8.8 mg/dL (8.4-10.2); Carbon Dioxide 28 mmol/L (22-29); Chloride 108 mmol/L (96-108); Creatinine Clr Calc Pharmacy 92.9; Estimated Glomerular Filt Rate > 60; Glucose Random 68 mg/dL (60-115); Potassium 3.7 mmol/L (3.3-5.1); Sodium 142 mmol/L (135-145)
[2025-02-28] VITALS (31 sets, daily range): BP systolic 162–233; BP diastolic 98–125; PULSE 57–78; RESP 14–20; TEMP 36.2–36.6; O2SAT 95–100; BMI 26.2
[2025-02-28] MEDS: Lactated Ringers 1,000 ML 100 ML IVCONT (08:24)
--- NOTE | 2025-02-28 10:28 | MHC.SHP ---
Pre-Procedural Eval Section A - 24 Hr Update-Section A only Date of Service: 02/28/25 The patient is an INPATIENT: No Changes since office visit: No Cold of Flu in the past 2 weeks, No New Medical Problems, No Changes in Medication and No Patient answered all questions The patient has been examined within 24 hours of the surgical procedure. The History & Physical has been completed within 30 days and I have reviewed it.: Yes Section B - Complete if H&P > 30 days Chief Complaint: Complete rotator cuff tear or rupture of right [place] Allergies: Allergies Allergy/AdvReac Type Severity Reaction Status Date / Time egg AdvReac Nausea and Verified 10/04/24 15:31 Vomiting Plan I have reviewed the history and physical and performed a pertinent physical examination on my patient. No changes have occurred unless specified. Time Spent With Patient Time: Total time managing care of this patient today ____ minutes.
[2025-02-28] MEDS: ceFAZolin Sodium/Dextrose,Iso 2 GM/50 ML PIGGYBACK IV (11:30)
--- NOTE | 2025-02-28 14:13 | P.BOP_ITS ---
Brief Operative Note Date of Service: 02/28/25 Pre-op diagnosis: Right RTC tear Post-op diagnosis: other (Massive RTC right) Procedure: Right rotator cuff repair, subscapularis, Supraspinatus and infraspinatus Implants: [employer] Double loaded 4.75 x 3; knotless Helacoil x 4 Regeneten bioinductive collagen patch, large. Surgeon: Minh Elam MD Anesthesia: GETA and regional Was an Shell Shop Supervisor used for this Procedure?: Yes Shell Shop Supervisor: Zoey Espinoza Estimated blood loss (mL): 20 IV fluids (mL): 1,500 Pathology: none sent Condition: stable Disposition: PACU
[2025-02-28] MEDS: Labetalol HCL 100 MG/20 ML VIAL 10 MG IVPUSH ×2 (14:48→14:53)
[2025-02-28] MEDS: fentaNYL citrate/PF 100 MCG/2 ML VIAL 50 MCG IVPUSH ×4 (15:03→15:25)
[2025-02-28] MEDS: Ketorolac Tromethamine 15 MG/ML VIAL IVPUSH ×2 (15:29→16:45)
[2025-02-28] MEDS: oxyCODONE HCl Immed Release 5 MG TABLET PO (16:13)
[2025-02-28] MEDS: carvediloL 12.5 MG TABLET PO (16:23)
[2025-02-28] MEDS: HYDROmorphone HCl 0.5 MG/0.5 ML SYRINGE IVPUSH ×2 (16:45→16:50)
[2025-02-28] MEDS: fentaNYL citrate/PF 100 MCG/2 ML VIAL 25 MCG IVPUSH ×2 (16:45→16:50)
[2025-02-28] MEDS: Ondansetron ODT 4 MG TAB.RAPDIS TRANSLINGU (17:02)
[2025-02-28] MEDS: droPERidol 5 MG/2 ML VIAL 0.625 MG IVPUSH (17:22)
--- NOTE | 2025-03-06 09:22 | W.PM.OPN ---
Operative Note Operative Note Date of Service: 02/28/25 Narrative: Date of Service: 02/28/25 Pre-op diagnosis: Right RTC tear Post-op diagnosis: other (Massive RTC right) Procedure: Right rotator cuff repair, subscapularis, Supraspinatus and infraspinatus Implants: [employer] Double loaded 4.75 x 3; knotless Helacoil x 4 Regeneten bioinductive collagen patch, large. Surgeon: Minh Elam MD Anesthesia: GETA and regional Was an Wood Gang Sawyer used for this Procedure?: Yes Wood Gang Sawyer: Zoey Espinoza Estimated blood loss (mL): 20 IV fluids (mL): 1,500 Pathology: none sent Condition: stable Disposition: PACU Procedure in detail: Patient was brought to the operating room and placed the the beach chair position. All bony prominences were well padded and the limb was prepped and draped in standard sterile fashion. A time out was called to identify proper site, proper procedure and proper surgeon. IV antibiotics per weight were administered. I began by making a posterolateral stab incision with a 15 blade. A blunt trochar was placed into the glenohumeral joint and I insufflated the joint with saline and a 30 degree arthroscope was placed. I established an outside- in anterior portal just distal to the biceps tendon. I then began my inspection of the glenohumeral joint. The biceps anchor was intact. There were minimal cartilage changes at the inferior glenoid without humeral head changes. There was a retracted full thickness undersurface RTC tear. The superior 50% of the subscaplaris was torn. I debrided the loose cartilage of the glenoid and the degenerative labral tearing. I then placed a looped suture tape and a fiber tape through the medial aspect of the torn superior portion of the subscapularis. I then debrided the insertion site down to bleeding bone ( just medial to the biceps) and took the three ends of the suture and ran them through a 5.0 Knotless Helacoil. I was satisfied with the repair and the normal anatomy had been restored. I then removed the trochar and entered the subacromial space. A direct lateral portal was then established and I performed a bursectomy. The cuff was then examined. There was a full thickness tear of the supra and infraspinatus with retraction. The infraspinatus was mobile and the supraspinatus was partially mobile. I placed two postero medial row double loaded anchors after using a tap just adjacent to the articular cartilage and then brought the suture limbs ( 8) through the infraspinatus. I then debrided the bare area down to bleeding bone and, using a cross bridge configuration, brought 4 limbs to each of two lateral 5.0 anchors. This re-approximated the infraspinatus anatomically. I now focused on releasing the supraspinatus anteriorly and medially and was able to bring a central portion of healthy supraspinatus to the bare area. I placed an additional medial anchor and brought the four limbs through the supraspinatus and brought these to a third lateral row anchor. I was able to repair a portion of the supraspinatus with minimal tension. Because of the exten tof the tear I chose to place one large Regeneten bioinductive collagen patch over the repair. It was shuttled in via a lateral portal and held in place with 6 medial PEEK ulisses and two lateral bone anchors ( PEEK). A 5 mm subacromial decompression was performed with a spherical jasmeet. Once I was satisfied with the repair final images were captured and I removed all instrumentation. Portals were closed with nylon. Patient was placed in an abduction sling, extubated and brought to the recovery room in stable condition. There were no known complications.
== END 2025-02-28 18:41 | disposition home or self-care (01) ==
PROVIDERS: Nurse Practitioner; PCP Internal Medicine; Visit Provider Orthopaedic Surgery
PROC: (CPT 29827; principal; 2025-02-28 10:30)
DX: M75.121 Complete rotator cuff tear or rupture of right shoulder, not specified as traumatic (principal); Z91.81 History of falling; I10 Essential (primary) hypertension; E78.00 Pure hypercholesterolemia, unspecified; I25.10 Atherosclerotic heart disease of native coronary artery without angina pectoris; I25.2 Old myocardial infarction; Z95.5 Presence of coronary angioplasty implant and graft; Z79.82 Long term (current) use of aspirin; Z79.899 Other long term (current) drug therapy; Z91.012 Allergy to eggs; Z98.890 Other specified postprocedural states
CPT/HCPCS: 29827; 36415; 80048; 85027; 93005; C1713; C1763; J0131; J0171; J0665; J0690; J1171; J1790; J1885; J1920; J2003; J2250; J2704; J3010

== ENCOUNTER → 2025-02-28 07:55 | Outpatient (BNV) | payer OTHER, SELFPAY | PROVIDERS: PCP Internal Medicine; Visit Provider Orthopaedic Surgery | DX: S46.011A Strain of muscle(s) and tendon(s) of the rotator cuff of right shoulder, initial encounter (principal) | CPT/HCPCS: 29827 ==

== ENCOUNTER 2025-03-08 15:02 | Outpatient (AMB) | payer OTHER, SELFPAY ==
--- NOTE | 2025-03-08 15:04 | A.OFFVIS_ITS ---
Intake Visit Reasons: PO RT RTC repair 02/28/25 NE Intake Note: Vlad is a 49 year old right hand dominant male who presents today for a post op appointment s/p right shoulder rotator cuff repair 02/28/25 NE. Patient reports he has mild pain, soreness and aches. States he is doing well over all. Allergies egg Adverse Reaction (Verified 03/08/25 15:06) Nausea and Vomiting HPI HPI PO RT RTC repair 02/28/25 NE: Details: Mr. Theodore is a 49-year-old male who presents to the office today status post right shoulder rotator cuff repair performed on 02/28/[address] Elam. Overall the patient is doing very well. He is wearing the sling as appropriate. He does not have any physical therapy appointment scheduled at this time. 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 No surrounding erythema or drainage. No signs of infection. 45 degrees forward flexion abduction. External rotation to neutral. NVI. Assessment & Plan Assessment & Plan (1) Status post rotator cuff repair: Code(s): Z98.890 - Other specified postprocedural states Category: Surgical Plan Mr. Theodore is a 49-year-old male who presents to the office today status post right shoulder rotator cuff repair performed on 02/28/[address] Elam. Overall the patient is doing very well. He is wearing the sling as appropriate. He does not have any physical therapy appointment scheduled at this time. While in the office today sutures are removed and Steri-Strips were applied. He was placed back into the sling in which he will stay on for the next 6 weeks. I placed a stat physical therapy order and provided the patient with the contact information to make an appointment at our [facility]. He will follow up in [address] Elam, sooner if needed. Coding Level of Care Code Global (06042) Diagnoses Status post rotator cuff repair Z98.890
--- OUTSIDE RECORDS SUMMARY | 2025-03-08 16:22 | XMS_ITS | Clinical Summary ---
Author Organization [facility] [address] [place] [address] Address [address] [place] [address] Phone Care Team Providers Care Tug Boat Engineer Name Role Phone Sisi Roca MD Primary [...] each day. 15 g 3 5 Active carvediloL (COREG) 12.5 mg tablet TAKE 1 TABLET BY MOUTH TWO TIMES A DAY WITH MEALS 180 tablet 2 5 Active Active Problems Problem Noted Date [...] Presented with hypertensive emergency and ST elevation OR in September 2019 to [facility] where I met him in consultation-was transported immediately to [facility] for cardiac cath - Cardiac cath on 10/19/2019 showed normal left main, 55% mid LAD, 80% D1 stenosis, codominant circumflex with 85% mid circumflex stenosis, 50% OM 2 stenosis, 90% proximal RCA stenosis with subsequent 100% distal RCA stenosis with [id number] collaterals-PCI was performed to the mid circumflex [...] at the time of his ST elevation OR that was treated transiently with nitro drip [...] Encounters Date Type Department Care Team Description 02/26/2025 Telephone [facility] [address] [facility] [address] [place] [address] Shannon Lares MD Notes 12/12/2024 2:00 PM EDT Office Visit Adult Medicine [address] [address] Sisi Roca MD Adult general medical examination [...] artery disease Brother 1 1/2 bro s/p OR age 36yo No Known Problems Brother 2 1/2 bro No Known Problems Brother 3 1/2 bro Prostate cancer Father dx early 50y o Coronary artery disease Mother s/p OR age 62yo Hypertension Mother Other: ovarian cancer [...] 74 12/12/2024 1:58 PM EDT Temperature 36.4 C (97.6 F) 12/12/2024 1:58 PM EDT Respiratory Rate 16 12/12/2024 1:58 PM EDT [...] 1:00 PM EDT Office Visit Adult Medicine [address] [address] Sisi Roca MD [address] [place] [address] [id number] Health Maintenance Due Date Last Done Comments [...] * Annual BMP Blood Test (08/24/2022) Pathologist [facility] Annual BMP Blood Test Abstracted [facility] Provider HEALTH MAINTENANCE Final Result * Lipid panel (08/24/2022) [facility] LDL/HDL Ratio 2 0 - 4 Triglycerides 65 0 - 150 mg/dL Cholesterol 149 0 - 200 mg/dL HDL 61 >=40 mg/dL LDL Cholesterol 75 0 - 100 mg/dL Blood Venous blood specimen / Unknown Historical Provider LAB BLOOD ORDERABLES Akua l Result * Hepatitis C Screening (07/16/2021) Pathologist [facility] Hepatitis C Screening Abstracted Historical Provider HEALTH MAINTENANCE Final Result from Last 3 Months or Most Recently Relevant to Health Maintenance Insurance [facility] Care Teams Tug Boat Engineer Relationship Specialty Start Date End Date Sisi Roca MD [address] [place] [id number] PCP - General Internal Medicine 12/12/24
== END 2025-03-08 15:34 | disposition home or self-care (01) ==
LOC: HO.HOS 15:02
PROVIDERS: PCP Internal Medicine; Visit Provider Physician Assistant
DX: Z98.890 Other specified postprocedural states (principal)
CPT/HCPCS: 99024

== ENCOUNTER → 2025-03-08 15:02 | Outpatient (BNVA) | payer OTHER, SELFPAY | PROVIDERS: PCP Internal Medicine; Visit Provider Physician Assistant | DX: Z98.890 Other specified postprocedural states (principal) | CPT/HCPCS: 99212 ==

== ENCOUNTER 2025-04-02 10:04 | Outpatient (AMB) | payer OTHER, SELFPAY ==
--- NOTE | 2025-04-02 10:07 | MHC.OFFVIS ---
Vital Signs 04/02/25 10:11 Height 5 ft 8 in Weight 170 lb BMI 25.8 Intake Visit Reasons: PO RT RTC repair 02/28/25 NE Intake Note: Vlad is a 49 year old right hand dominant male who presents today for a post op appointment s/p right rotator cuff repair 02/28/25 NE. Patient reports that he is doing well, no concerns at this time. Continues to work with physical therapy and is having no pain. Would like to discontinue sling. Allergies egg Adverse Reaction (Verified 04/02/25 10:13) Nausea and Vomiting HPI HPI PO RT RTC repair 02/28/25 NE: Details: Vlad is a 49 year old right hand dominant male who presents today for a post op appointment s/p right rotator cuff repair 02/28/25 NE. Patient reports that he is doing well, no concerns at this time. Continues to work with physical therapy and is having no pain. Would like to discontinue sling. This is a large repair with a portion of the supraspinatus unrepairable. 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 External rotation to 5 degrees. Sensation intact to light touch. Moving fingers, elbow and wrist comfortably Assessment & Plan Assessment & Plan (1) Status post rotator cuff repair: Code(s): Z98.890 - Other specified postprocedural states Category: Surgical Plan: Status post rotator cuff repair doing well. Large repair protocol. May DC sling. Follow up 6 weeks. Continue out of work status. Coding Level of Care Code Global (68703) Diagnoses Status post rotator cuff repair Z98.890
[2025-04-02 10:11] VITALS: BMI 25.8
--- OUTSIDE RECORDS SUMMARY | 2025-04-02 10:47 | XMS_ITS | Clinical Summary ---
Author Organization [facility] [address] [place] [address] Address [address] [place] [address] Phone Care Team Providers Care Shank Archer Name Role Phone Sisi Roca MD Primary [...] ST elevation [place] in September 2019 to [facility] where I met him in consultation-was transported immediately to [facility] for cardiac cath - Cardiac cath on 10/19/2019 showed normal left main, 55% mid LAD, 80% D1 stenosis, codominant circumflex with 85% mid circumflex stenosis, 50% OM 2 stenosis, 90% proximal RCA stenosis with subsequent 100% distal RCA stenosis with [id number] collaterals-PCI was performed to the mid circumflex [...] Type Department Care Team Description 02/26/2025 Telephone [facility] - [facility] [address] [facility] [address] [place] [address] Shannon Lares MD Notes from Last 3 Months Immunizations Name Administration [...] 1:00 PM EDT Office Visit Adult Medicine [facility] [address] [place] [address] Sisi Roca MD [address] [place] [id number] Health Maintenance Due Date Last Done Comments Hepatitis B Vaccines (1 of 3 - 19+ 3-dose series) 1994 Pneumococcal Vaccine: Pediatrics (0 to 5 Years) and At-Risk Patients (6 to 49 Years) (1 of 2 - PCV) 1994 [...] Test (08/24/2022) Annual BMP Blood Test Abstracted [facility] Provider HEALTH MAINTENANCE Final Result * Lipid panel (08/24/2022) Pathologist [facility] LDL/HDL Ratio 2 0 - 4 Triglycerides 65 0 - 150 mg/dL Cholesterol 149 0 - 200 mg/dL HDL 61 >=40 mg/dL LDL Cholesterol 75 0 - 100 mg/dL Blood Venous blood specimen / Unknown [facility] Provider LAB BLOOD ORDERABLES Akua l Result * Hepatitis C Screening (07/16/2021) Pathologist [facility] Hepatitis C Screening Abstracted [facility] Provider HEALTH MAINTENANCE Final Result from Last 3 Months or Most Recently Relevant to Health Maintenance Insurance [facility] [address] [place] [address] Care Teams Shank Archer Relationship Specialty Start Date End Date Sisi Roca MD [address] [place] [id number] PCP - General Internal Medicine 12/12/24
== END 2025-04-02 10:26 | disposition home or self-care (01) ==
LOC: HO.HOS 10:05
PROVIDERS: PCP Internal Medicine; Visit Provider Orthopaedic Surgery
DX: Z98.890 Other specified postprocedural states (principal)
CPT/HCPCS: 99024

== ENCOUNTER → 2025-04-02 10:04 | Outpatient (BNVA) | payer OTHER, SELFPAY | PROVIDERS: PCP Internal Medicine; Visit Provider Orthopaedic Surgery | DX: Z98.890 Other specified postprocedural states (principal) | CPT/HCPCS: 99212 ==

== ENCOUNTER 2025-05-17 09:48 | Outpatient (AMB) | payer OTHER, SELFPAY ==
[2025-05-17 09:50] VITALS: BMI 25.8
--- NOTE | 2025-05-17 09:50 | MHC.OFFVIS ---
Vital Signs 05/17/25 09:50 05/17/25 09:51 Height 5 ft 8 in 5 ft 8 in Weight 170 lb 170 lb BMI 25.8 25.8 Intake Visit Reasons: PO- RT RTC repair 02/28/25 NE Intake Note: Vlad is a 49 year old right hand dominant male who presents today for a post op appointment s/p right rotator cuff repair 02/28/25 NE. Large repair protocol. He remains out of work at this time. Currently he reports that he is doing well. Continues to struggle reach full active ROM above the head, but can complete full passive ROM with some mild pain. While working with physical therapy he explains a burning pain at incision sites. Denies numbness and tingling. Allergies egg Adverse Reaction (Verified 05/17/25 09:51) Nausea and Vomiting HPI HPI PO- RT RTC repair 02/28/25 NE: Details: Vlad is a 49 year old right hand dominant male who presents today for a post op appointment s/p right rotator cuff repair 02/28/25 NE. Large repair protocol. He remains out of work at this time. Currently he reports that he is doing well. Continues to struggle reach full active ROM above the head, but can complete full passive ROM with some mild pain. While working with physical therapy he explains a burning pain at incision sites. Denies numbness and tingling. 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 4-/5 strength with supraspinatus testing 4+/5 strength with infraspinatus testing. Assessment & Plan Assessment & Plan (1) Complete tear of right rotator cuff: Code(s): M75.121 - Complete rotator cuff tear or rupture of right shoulder, not specified as traumatic Category: Medical Plan: This is a 49-year-old gentleman or massive rotator cuff tear that was acute on chronic. I was able to repair the subscapularis and the infraspinatus in the posterior half of the supraspinatus but the anterior 50% of the supraspinatus was unrepairable. This has resulted in weakness in the supraspinatus and that is evident on exam. He is slow to progress. He understands this. He understands the extent of the damage in the surgery. I explained it to him and he will continue to work on passive range of motion with active strengthening of the periscapular musculature and focusing on scapular stabilization. He will remain out of work. I will see him back in 6 weeks' time. Coding Level of Care Code Global (50457) Diagnoses Complete tear of right rotator cuff M75.121
[2025-05-17 09:51] VITALS: BMI 25.8
--- OUTSIDE RECORDS SUMMARY | 2025-05-17 10:59 | XMS_ITS ---
Author Name [facility] Organization Unknown Care Team Organization Name Specialty Phone Email Start Date End Da te [facility] 11/25/202204/20 [facility] Termed, PROVIDER Primary Care 07/28/202204/20
--- OUTSIDE RECORDS SUMMARY | 2025-05-17 10:59 | XMS_ITS | Clinical Summary ---
Author Organization [facility] [address] [place] [address] Address [address] [place] [address] Phone Care Team Providers Care Switchman Name Role Phone Sisi Roca MD Primary [...] Presented with hypertensive emergency and ST elevation [place] in September 2019 to [facility] where I met him in consultation-was transported immediately to [facility] for cardiac cath - Cardiac cath on 10/19/2019 showed normal left main, 55% mid LAD, 80% D1 stenosis, codominant circumflex with 85% mid circumflex stenosis, 50% OM 2 stenosis, 90% proximal RCA stenosis with subsequent 100% distal RCA stenosis with [id number]-el-[id number] collaterals-PCI was performed to the mid circumflex [...] at the time of his ST elevation [place] that was treated transiently with nitro drip [...] Type Department Care Team Description 02/26/2025 Telephone [facility] - [facility] [address] [facility] [address] [place] [address] Shannon Lares MD from Last 3 Months Immunizations Name Administration [...] artery disease Brother 1 1/2 bro s/p [place] age 36yo No Known Problems Brother 2 1/2 bro No Known Problems Brother 3 1/2 bro Prostate cancer Father dx early 50y o Coronary artery disease Mother s/p SC age 62yo Hypertension Mother Other: ovarian cancer [...] 1:00 PM EDT Office Visit Adult Medicine [facility] [address] [place] [phone] iSsi Roca MD [address] [place] [id number] Health Maintenance Due Date Last Done Comments Hepatitis B Vaccines (1 of 3 - 19+ 3-dose series) 1994 Pneumococcal Vaccine: Pediatrics (0 to 5 Years) and At-Risk Patients (6 to 49 Years) (1 of 2 - PCV) 1994 HIV Screening 08/29/2022 Social Influencers of Health Screening 08/29/2022 Hypertension/CHF/CAD Annual BMP Blood Test 08/24/2023 08/24/2022 Cholesterol Screening (Lipid Panel) 08/24/2027 08/24/2022 DTaP,Tdap,and Td Vaccines (2 - Td or Tdap) 04/25/2030 04/25/2020 Colorectal Cancer Screening: Colonoscopy 05/04/2033 05/04/2023 COVID-19 Vaccine Discontinued 04/02/2021, 03/05/2021 Hepatitis C Screening Completed 07/16/2021 Depression Screening Completed 12/12/2024 HIB Vaccines Aged Out No longer eligi [...] * Annual BMP Blood Test (08/24/2022) Pathologist [facility] Annual BMP Blood Test Abstracted [facility] Provider HEALTH MAINTENANCE Final Result * Lipid panel (08/24/2022) Pathologist [facility] LDL/HDL Ratio 2 0 - 4 Triglycerides 65 0 - 150 mg/dL Cholesterol 149 0 - 200 mg/dL HDL 61 >=40 mg/dL LDL Cholesterol 75 0 - 100 mg/dL Blood Venous blood specimen / Unknown [facility] Provider LAB BLOOD ORDERABLES Akua l Result * Hepatitis C Screening (07/16/2021) Pathologist [facility] Hepatitis C Screening Abstracted [facility] Provider HEALTH MAINTENANCE Final Result from Last 3 Months or Most Recently Relevant to Health Maintenance Insurance [facility] [address] [place] [address] Care Teams Switchman Relationship Specialty Start Date End Date Sisi Roca MD [address] [place] [id number] PCP - General Internal Medicine 12/12/24
== END 2025-05-17 10:10 | disposition home or self-care (01) ==
LOC: HO.HOS 09:49
PROVIDERS: PCP Internal Medicine; Visit Provider Orthopaedic Surgery
DX: M75.121 Complete rotator cuff tear or rupture of right shoulder, not specified as traumatic (principal)
CPT/HCPCS: 99024

== ENCOUNTER → 2025-05-17 09:48 | Outpatient (BNVA) | payer OTHER, SELFPAY | PROVIDERS: PCP Internal Medicine; Visit Provider Orthopaedic Surgery | DX: Z98.890 Other specified postprocedural states (principal); M75.121 Complete rotator cuff tear or rupture of right shoulder, not specified as traumatic | CPT/HCPCS: 99212 ==

== ENCOUNTER 2025-05-31 08:00 | Outpatient (RCR) | payer OTHER, SELFPAY ==
--- NOTE | 2025-03-22 09:51 | MHC.PT.EP ---
[facility] [place] Office [place] Office [place] Office [address] Devaughn Dwyer [address] [phone] F: [phone] F: [phone] F: [phone] F: [phone] Physical Therapy Plan of Care Date of Evaluation: 03/22/25 Date of Surgery: 02/28/25 Diagnosis: This is a 49 yo male presenting to skilled PT with a script for s/p 02/28/25 R RTC repair. Assessment: This is a 49 yo male presenting to skilled PT with a script for s/p 02/28/25 R RTC repair. Patient was working on a ladder 08/09/2024 when he fell and landed on his right arm at work. He felt immediate shoulder pain. He also sustained a perilunate dislocation at this time and had wrist surgery the day after. His RTC surgery was performed [facility] as well. He saw them last on 03/09: While in the office today sutures are removed and Steri-Strips were applied. He was placed back into the sling in which he will stay on for the next 6 weeks. I placed a stat physical therapy order and provided the patient with the contact information to make an appointment at our [facility] is [facility] physical therapy. He will follow up in [address] Elam, sooner if needed. Post op notes report massive tear, right rotator cuff repair, subscapularis, Supraspinatus and infraspinatus. Pain is now mild and occasional instances of poke but overall doing well. Assessment reveals pain that ranges from up to a 2/10 at the worst. Patient demos decreased shoulder and cervical ROM, strength of B shoulder's, TTP at incisions and surrounding soft tissues as well as UT and impaired posture with forward head and rounded shoulders. Based on functional limitations, impaired QOL and pain tolerance patient is a good candidate for skilled PT 2x/wk for 6wks. Frequency and Duration: The patient will be seen 2x/wk for 6wks Short Term Goals: (In 2 weeks) Demo I with HEP Improve shoulder AROM by at least 25 degs Demo proper scapular recruitment with appropriate shoulder strengthening exercises Patient will understand sling wear, healing and surgical precautions Group Home Goals: (in 6 wks) Improve shoulder nonpainful AROM to almost near equal B Demo at least 1 grade improvement in MMT for shoulder Improve SPADI by at least 10 points Improve overall functional QOL by at least 50% Treatment Plan: Modalities to reduce pain, spasms and effusion. Manual therapy to restore motion and function. Therapeutic exercise to improve strength and flexibility. Neuromuscular re-education for posture and balance. Therapeutic activities to return to functional activities of daily living. Electronically signed by: Whit Byrne PT Please sign and return to therapist. Thank you for your referral.
--- NOTE | 2025-06-06 15:51 | MHC.PT.DC ---
[facility] [place] Office [place] Office [place] Office [address] Devaughn Dwyer [address] [phone] F: [phone] F: [phone] F: [phone] F: [phone] Physical Therapy Discharge Report Diagnosis: This is a 49 yo male presenting to skilled PT with a script for s/p 02/28/25 R RTC repair. Date of Surgery: 02/28/25 Date of Evaluation: 03/22/25 Date of Discharge: 06/06/25 Treatments to Date: 12 Cancellations to Date: 0 No Shows to Date: 0 Discharge Status: Discharge Summary: Patient came to 12 visits of PT. A request for more visits was requested but denied. Patient's chart was DC'd. He has an HEP to continue on his own at this time. Electronically signed by: Whit Byrne, PT Please sign and return to therapist. Thank you for your referral.
== END 2025-06-06 15:52 | disposition home or self-care (01) ==
LOC: HO.PTCHIC 08:00
PROVIDERS: PCP Internal Medicine; Visit Provider Physician Assistant
DX: M75.121 Complete rotator cuff tear or rupture of right shoulder, not specified as traumatic (principal); Z98.890 Other specified postprocedural states
CPT/HCPCS: 97110; 97140; 97162; 97164

== ENCOUNTER 2025-06-18 10:36 | Outpatient (AMB) | payer OTHER, SELFPAY ==
--- NOTE | 2025-06-18 10:38 | A.OFFVIS_ITS ---
Intake Visit Reasons: OV-WC-RT RTC repair 02/28/25 NE Intake Note: Vlad is a 49 year old right hand dominant male who presents today for a post op appointment about 3 months s/p right rotator cuff repair 02/28/25 NE. Large repair protocol, anterior 50% of the supraspinatus was unrepairable which has resulted in weakness in the supraspinatus and that is evident on exam. This is from a WC injury on 08/09/24 & He remains out of work at this time. Continues to work with [facility]. Allergies egg Adverse Reaction (Verified 05/17/25 09:51) Nausea and Vomiting HPI HPI OV-WC-RT RTC repair 02/28/25 NE: Details: Vlad is a 49 year old right hand dominant male who presents today for a post op appointment about 3 months s/p right rotator cuff repair 02/28/25 NE. Large repair protocol, anterior 50% of the supraspinatus was unrepairable which has resulted in weakness in the supraspinatus and that is evident on exam. This is from a WC injury on 08/09/24 & He remains out of work at this time. Continues to work with [facility]. 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 4-/5 strength with supraspinatus testing 4+/5 strength with infraspinatus testing. Neg lift off/press Assessment & Plan Assessment & Plan (1) Status post rotator cuff repair: Code(s): Z98.890 - Other specified postprocedural states Category: Surgical Plan: 50-year-old status post right shoulder rotator cuff repair. It is proximally 4 months postop. He is doing okay. He states his insurance stopped paying for his physical therapy. I strongly recommend he continue physical therapy. His supraspinatus does not appear to be functioning well but his infraspinatus is intact in his subscapularis is intact. He is to remain out of work. I will see him back in 2 months. Orders: Orders PT Evaluation and Treatment Today Z98.890 - Other specified postprocedural states Coding Level of Care Code Est Pt Level 3 (03532) Diagnoses Status post rotator cuff repair Z98.890
--- OUTSIDE RECORDS SUMMARY | 2025-06-18 11:52 | XMS_ITS | Clinical Summary ---
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 Name Role Phone Sisi Roca MD Primary [...] ST elevation [place] in September 2019 to [facility] where I met him in consultation-was transported immediately to [facility] for cardiac cath - Cardiac cath on 10/19/2019 showed normal left main, 55% mid LAD, 80% D1 stenosis, codominant circumflex with 85% mid circumflex stenosis, 50% OM 2 stenosis, 90% proximal RCA stenosis with subsequent 100% distal RCA stenosis with [id number] collaterals-PCI was performed to the mid circumflex [...] month for blood pressure check only Immunizations Immunization Administration Dates Next Due Moderna SARS-CoV-2 COVID-19, [...] Allstein Relation Name Status Comments Brother 1 /2 bro Alive Brother 2 2 bro Alive Brother 3 09/21 bro Alive [...] Care Team (Late st Contact Info) Description 07/16/2025 12:30 PM EDT Office Visit Adult Medicine [facility] [address], [place] [phone] Oumou Davey PA [address], [place] Health Maintenance Due Date Last Done Comments Hepatitis B Vaccines (1 of 3 - 19+ 3-dose series) 1994 Pneumococcal Vaccine: 50+ Years (1 of 2 - PCV) 1994 HIV Screening 08/29/2022 Social Influencers of Health Screening 08/29/2022 Hypertension/CHF/CAD Annual BMP Blood Test 08/24/2023 08/24/2022 Zoster Vaccines (1 of 2) 2025 Cholesterol Screening (Lipid Panel) 08/24/2027 08/24/2022 DTaP,Tdap,and Td Vaccines (2 - Td or Tdap) 04/25/2030 04/25/2020 Colorectal Cancer Screening: Colonoscopy 05/04/2033 05/04/2023 RSV Immunization Adult Patients (1 - 1-dose 75+ series) 2050 COVID-19 Vaccine Discontinued 04/02/2021, 03/05/2021 Hepatitis C [...] * Annual BMP Blood Test (08/24/2022) Pathologist [facility] Annual BMP Blood Test Abstracted [facility] Provider HEALTH MAINTENANCE Final Result * Lipid panel (08/24/2022) [facility] LDL/HDL Ratio 2 0 - 4 Triglycerides 65 0 - 150 mg/dL Cholesterol 149 0 - 200 mg/dL HDL 61 >=40 mg/dL LDL Cholesterol 75 0 - 100 mg/dL Blood Venous blood specimen / Unknown [facility] Provider LAB BLOOD ORDERABLES Akua l Result * Hepatitis C Screening (07/16/2021) [facility] Hepatitis C Screening Abstracted [facility] Provider HEALTH MAINTENANCE Final Result from Last 3 Months or Most Recently Relevant to Health Maintenance [place] [address] [place] [address] Care Teams Produce Laborer Relationship Specialty Start Date End Date Sisi Roca MD [address] [place] [phone] PCP - General Internal Medicine 12/12/24
== END 2025-06-18 10:55 | disposition home or self-care (01) ==
LOC: HO.HOS 10:37
PROVIDERS: PCP Internal Medicine; Visit Provider Orthopaedic Surgery
DX: Z47.89 Encounter for other orthopedic aftercare (principal); S46.011D Strain of muscle(s) and tendon(s) of the rotator cuff of right shoulder, subsequent encounter
CPT/HCPCS: 99213

== ENCOUNTER → 2025-06-18 10:36 | Outpatient (BNVA) | payer OTHER, SELFPAY | PROVIDERS: PCP Internal Medicine; Visit Provider Orthopaedic Surgery | DX: Z98.890 Other specified postprocedural states (principal) | CPT/HCPCS: 99212 ==

== ENCOUNTER 2025-08-09 09:14 | Outpatient (AMB) | payer OTHER, SELFPAY ==
--- NOTE | 2025-08-09 09:23 | MHC.OFFVIS ---
Intake Visit Reasons: OV-WC-RT RTC repair 02/28/25 NE Intake Note: Vlad is a 49 year old right hand dominant male who presents today for a post op appointment about 5 months s/p right rotator cuff repair 02/28/25 NE. Large repair protocol, anterior 50% of the supraspinatus was unrepairable. This is from a WC injury on 08/09/24 & He remains out of work at this time. His insurance cancelled his phsyical therapy. Allergies egg Adverse Reaction (Verified 08/09/25 09:25) Nausea and Vomiting HPI HPI OV-WC-RT RTC repair 02/28/25 NE: Details: Vlad is a 49 year old right hand dominant male who presents today for a post op appointment about 5 months s/p right rotator cuff repair 02/28/25 NE. Large repair protocol, anterior 50% of the supraspinatus was unrepairable. This is from a WC injury on 08/09/24 & He remains out of work at this time. His insurance cancelled his phsyical therapy. 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 He is able to get his hand behind his head but requires significant scapular recruitment to do so. Passive range of motion is full however active abduction without scapular recruitment limited to approximately 40 degrees with 4-/5 empty can. Assessment & Plan Assessment & Plan (1) Status post rotator cuff repair: Code(s): Z98.890 - Other specified postprocedural states Category: Surgical Plan: Status post rotator cuff repair. His cuff was only partially repairable and a large portion of the supraspinatus was not repairable. I think he has minimal pain and decent motion but requires scapular recruitment fully abducting the arm. I recommend he continue physical therapy. He will remain out of work. He will see me back in 8-10 weeks. (2) Complete tear of right rotator cuff: Code(s): M75.121 - Complete rotator cuff tear or rupture of right shoulder, not specified as traumatic Category: Surgical Plan: Coding Level of Care Code Est Pt Level 3 (38310) Diagnoses Status post rotator cuff repair Z98.890 Complete tear of right rotator cuff M75.121
== END 2025-08-09 09:52 | disposition home or self-care (01) ==
LOC: HO.HOS 09:15
PROVIDERS: PCP Internal Medicine; Visit Provider Orthopaedic Surgery
DX: M25.511 Pain in right shoulder (principal); Z47.89 Encounter for other orthopedic aftercare
CPT/HCPCS: 99213

== ENCOUNTER → 2025-08-09 09:14 | Outpatient (BNVA) | payer OTHER, SELFPAY | PROVIDERS: PCP Internal Medicine; Visit Provider Orthopaedic Surgery | DX: Z98.890 Other specified postprocedural states (principal); M75.121 Complete rotator cuff tear or rupture of right shoulder, not specified as traumatic | CPT/HCPCS: 99212 ==